=== PATIENT | female | born 1945 | race Caucasian/White ===

== ENCOUNTER 2021-05-31 08:58 | Day surgery (SDC) | payer BC, MEDICARE ==
[2021-05-27 08:52] VITALS: BMI 29.2
[~2021-05-31 08:58] MED LIST: LACTATED RINGERS 1,000 ML IV SCH
[2021-05-31 09:39] VITALS: TEMP 97.1
[2021-05-31] MEDS ORDERED: LIDOCAINE 1% (10MG/ML) FOR IV START INTRADERMA ONE (09:48)
[2021-05-31] MEDS ORDERED: LIDOCAINE 1% INJ 10MG/ML (20 ML MDV) ONE (10:35)
[2021-05-31] MEDS ORDERED: PROPOFOL 10 MG/ML 20 ML VIAL IV ONE (10:35)
--- NOTE | 2021-05-31 10:53 | P.PCN ---
Date of Procedure: 05/31/21 Procedure(s) Performed: BRIEF HISTORY: Patient is a 75-year-old pleasant white female scheduled for an elective colonoscopy as a part of screening for colorectal neoplasia. PROCEDURE PERFORMED: Colonoscopy with snare polypectomy. PREOPERATIVE DIAGNOSIS: Screening for colon cancer. IV sedation per Anesthesia. PROCEDURE: After informed consent was obtained, the patient, was brought into the endoscopy unit. IV sedation was administered by Anesthesia under continuous monitoring. Digital rectal examination was normal. Initially the Olympus CF-160 flexible video colonoscope was then inserted in the rectum, gradually advanced into the cecum without any difficulty. Careful examination was performed as the scope was gradually being withdrawn. Ileocecal valve and the appendiceal orifice were visualized and appeared normal. Prep was excellent. Mucosa of the cecum, ascending colon, transverse colon, descending colon, In the sigmoid: There was a 5 limited polyp that was removed by snare polypectomy. Rest of the sigmoid colon, and rectum appeared normal. Scattered sigmoid diverticulosis. Retroflexion was performed in the rectum and no lesions were seen. The patient tolerated the procedure well. IMPRESSION: 5 mm sigmoid: Polyp status post polypectomy Scattered sigmoid diverticulosis. RECOMMENDATIONS: Findings of this examination were discussed with the patient as well as a family. She was advised to follow with the biopsy results. If the biopsy reveals adenoma she can have a repeat colonoscopy in 5 years..
[2021-05-31 11:25] VITALS: BP 161/81; PULSE 88; RESP 18
== END 2021-05-31 11:32 | disposition home or self-care (01) ==
LOC: ORWHC2ENDO 08:58
PROVIDERS: ATTEND Internal Medicine Gastroenterology
DX: Z12.11 Encounter for screening for malignant neoplasm of colon (principal); K63.5 Polyp of colon; K57.30 Diverticulosis of large intestine without perforation or abscess without bleeding
CPT/HCPCS: 45385; 88305; J2001; J2704

== ENCOUNTER 2022-11-27 15:14 | Inpatient (IN) | payer MEDICARE ==
--- NOTE | 2022-11-27 15:25 | ED ---
General Adult HPI - General Chief complaint: Neuro Symptoms/Deficit Stated complaint: R leg numbness Time Seen by Provider: 11/27/22 15:20 Source: patient Mode of arrival: ambulatory Limitations: no limitations - History of Present Illness Initial comments: 77-year-old female with past medical history of hypertension, rheumatoid arthritis presents emergency department with right-sided weakness and tingling. Patient went to bed around 10:30 last night. She awoke this morning and when she attempted to get out of bed she had numbness in her right leg. She felt weak and had difficulty ambulating. Daughter is at bedside and states that she fell 3 times today because of the weakness. She also notes that she has numbness and tingling in her right hand. She is right-hand dominant. She denies any speech changes. No headaches or visual changes. No facial droop. No history of stroke. She denies any chest pain or trouble breathing. She does not take any blood thinners. She tested positive for Covid on and has been taking Paxlovid. No other alleviating, precipitating or modifying factors - Related Data Home Medications Medication Instructions Recorded Confirmed Levothyroxine Sodium [Synthroid] 100 mcg PO DAILY 05/27/21 11/27/22 Simvastatin [Zocor] 20 mg PO DIRECTED 05/27/21 11/27/22 Diclofenac Sodium [Voltaren] 75 mg PO BID 11/27/22 11/27/22 Furosemide [Lasix] 20 mg PO DAILY 11/27/22 11/27/22 NIFEdipine XL [Procardia XL] 60 mg PO DAILY 11/27/22 11/27/22 Nirmatrelvir/Ritonavir [Paxlovid 1 dose PO BID 11/27/22 11/27/22 2X150 mg-100 mg (Eua)] Allergies Allergy/AdvReac Type Severity Reaction Status Date / Time cephalexin [From Keflex] Allergy Rash/Hives Verified 11/27/22 16:38 Review of Systems ROS Statement: Those systems with pertinent positive or pertinent negative responses have been documented in the HPI. ROS Other: All systems not noted in ROS Statement are negative. Past Medical History Past Medical History: Deep Vein Thrombosis (DVT), Hypertension, Rheumatoid Arthritis (RA), Thyroid Disorder Additional Past Medical History / Comment(s): hx migrainres, History of Any Multi-Drug Resistant Organisms: None Reported Past Surgical History: Hysterectomy, Tonsillectomy Additional Past Surgical History / Comment(s): vein surgery left leg, dave cataracts Past Anesthesia/Blood Transfusion Reactions: Motion Sickness Past Psychological History: No Psychological Hx Reported Smoking Status: Never smoker Past Alcohol Use History: None Reported Past Drug Use History: None Reported - Past Family History Daughter(s) Family Medical History: Cancer General Exam Limitations: no limitations General appearance: alert, in no apparent distress Head exam: Present: atraumatic, normocephalic, normal inspection Eye exam: Present: normal appearance, PERRL, EOMI. Absent: scleral icterus, conjunctival injection, periorbital swelling ENT exam: Present: normal exam, mucous membranes moist Neck exam: Present: normal inspection. Absent: tenderness, meningismus, lymphadenopathy Respiratory exam: Present: normal lung sounds bilaterally. Absent: respiratory distress, wheezes, rales, rhonchi, stridor Cardiovascular Exam: Present: regular rate, normal rhythm, normal heart sounds. Absent: systolic murmur, diastolic murmur, rubs, gallop, clicks GI/Abdominal exam: Present: soft, normal bowel sounds. Absent: distended, tenderness, guarding, rebound, rigid Extremities exam: Present: normal capillary refill, other (0/5 strength in her rle. 4/5 strength rue. ). Absent: pedal edema, joint swelling, calf tenderness Back exam: Present: normal inspection Neurological exam: Present: alert, oriented X3, CN II-XII intact, abnormal gait Psychiatric exam: Present: normal affect, normal mood Skin exam: Present: warm, dry, intact, normal color. Absent: rash Course Vital Signs 11/27/22 11/27/22 11/27/22 15:16 16:40 16:50 Temperature 98.1 F Pulse Rate 71 70 70 Respiratory 18 18 18 Rate Blood Pressure 123/84 138/84 138/84 O2 Sat by Pulse 97 Oximetry 11/27/22 11/27/22 11/27/22 17:00 17:30 18:00 Temperature Pulse Rate 70 67 70 Respiratory 18 18 18 Rate Blood Pressure 138/84 139/75 152/87 O2 Sat by Pulse Oximetry 11/27/22 11/27/22 11/27/22 18:02 18:30 19:00 Temperature Pulse Rate 65 69 71 Respiratory Rate Blood Pressure 165/86 165/86 O2 Sat by Pulse Oximetry 11/27/22 11/27/22 11/27/22 19:30 20:00 20:30 Temperature Pulse Rate 71 71 69 Respiratory Rate Blood Pressure O2 Sat by Pulse Oximetry 11/27/22 11/27/22 11/27/22 21:00 21:30 22:00 Temperature Pulse Rate 64 73 63 Respiratory Rate Blood Pressure O2 Sat by Pulse Oximetry 11/27/22 11/27/22 11/28/22 22:30 23:30 06:00 Temperature Pulse Rate 66 64 60 Respiratory 18 18 Rate Blood Pressure 155/91 151/84 O2 Sat by Pulse 97 95 Oximetry 11/28/22 11/28/22 11/28/22 08:27 14:45 19:47 Temperature Pulse Rate 64 67 71 Respiratory 18 18 18 Rate Blood Pressure 139/83 130/75 147/90 O2 Sat by Pulse 98 97 99 Oximetry Medical Decision Making - Medical Decision Making Was pt. sent in by a medical professional or institution (, PA, SENIOR DATASTAGE DEVELOPER, urgent care, hospital, or group home...) When possible be specific @ -No Did you speak to anyone other than the patient for history (EMS, parent, family, police, friend...)? What history was obtained from this source @ -No Did you review nursing and triage notes (agree or disagree)? Why? @ -I reviewed and agree with nursing and triage notes Were old charts reviewed (outside hosp., previous admission, EMS record, old EKG, old radiological studies, urgent care reports/EKG's, group home records)? Report findings @ -No old charts were reviewed Differential Diagnosis (chest pain, altered mental status, abdominal pain women, abdominal pain men, vaginal bleeding, weakness, fever, dyspnea, syncope, headache, dizziness, GI bleed, back pain, seizure, CVA, palpatations, mental health, musculoskeletal)? @ -CVA, TIA, lumbar radiculopathy, encephalitis, mass, ms EKG interpreted by me (3pts min.). @ -Yes and demonstrates sinus rhythm with rate of 65. MO interval 176. QRS 100. QTC 386. No acute ST segment elevations or depressions X-rays interpreted by me (1pt min.). @ -yes and demonstrates no acute process CT interpreted by me (1pt min.). @ -yes and demonstrates no acute cva U/S interpreted by me (1pt. min.). @ -None done What testing was considered but not performed or refused? (CT, X-rays, U/S, labs)? Why? @ -None What meds were considered but not given or refused? Why? @ -statin however patient has been on paxlovid. statin contraindicated x 5 days after paxlovid Did you discuss the management of the patient with other professionals (professionals i.e. , PA, SENIOR DATASTAGE DEVELOPER, lab, RT, psych nurse, social media campaign manager, electric clock mechanic, teacher, learning and development officer, family independence case manager)? Give summary @ -Dr. Kline Was smoking cessation discussed for >3mins.? @ -No Was critical care preformed (if so, how long)? @ -No Were there social determinants of health that impacted care today? How? (Homelessness, low income, unemployed, alcoholism, drug addiction, transportation, low edu. Level, literacy, decrease access to med. care, half-way, rehab)? @ -No Was there de-escalation of care discussed even if they declined (Discuss DNR or withdrawal of care, Hospice)? DNR status @ -No What co-morbidities impacted this encounter? (DM, HTN, Smoking, COPD, CAD, Can cer, CVA, ARF, Chemo, Hep., AIDS, mental health diagnosis, sleep apnea, morbid obesity)? @ -None Was patient admitted / discharged? Hospital course, mention meds given and route, prescriptions, significant lab abnormalities, going to OR and other pertinent info. @ -Upon arrival patient was placed into room 24. Thorough history and physical exam was performed. NIH is assessed. Patient does have weakness in her right upper extremity, right lower extremity. NIH is assessed and scores a 6. Last known well was last night at 10:30 PM. I did obtain IV access. We do await lab results as patient is known to have a reduced GFR. Patient is sent over for CT and CT angiography. Patient is not a TPA candidate as she is outside the window for TPA. CT is negative. Patient was given an aspirin. I did hold the patient's statin as she is currently on Paxlovid and there is a significant drug drug interaction. I recommended admission for which the patient was agreeable. Spoke with Dr. Kline for admission. Undiagnosed new problem with uncertain prognosis? @ -yes Drug Therapy requiring intensive monitoring for toxicity (Heparin, Nitro, Insulin, Cardizem)? @ -No Were any procedures done? @ -No Diagnosis/symptom? @ -acute right upper/right lower extremity weakness, suspected cva Acute, or Chronic, or Acute on Chronic? @ -acute Uncomplicated (without systemic symptoms) or Complicated (systemic symptoms)? @ -complicated Side effects of treatment? @ -No Exacerbation, Progression, or Severe Exacerbation? @ -No Poses a threat to life or bodily function? How? (Chest pain, USA, ND, pneumonia, PE, COPD, DKA, ARF, appy, cholecystitis, CVA, Diverticulitis, Homicidal, Suicidal, threat to staff... and all critical care pts) @ -No - Lab Data Result diagrams: 11/27/22 15:44 11/28/22 06:00 Lab Results 11/27/22 11/27/22 11/27/22 Range/Units 15:28 15:44 15:44 WBC 8.5 (3.8-10.6) k/uL RBC 4.34 (3.80-5.40) m/uL Hgb 13.3 (11.4-16.0) gm/dL Hct 40.6 (34.0-46.0) % MCV 93.6 (80.0-100.0) fL MCH 30.7 (25.0-35.0) pg MCHC 32.8 (31.0-37.0) g/dL RDW 15.0 (11.5-15.5) % Plt Count 585 H (150-450) k/uL MPV 8.0 Neutrophils % 79 % Lymphocytes % 13 % Monocytes % 6 % Eosinophils % 0 % Basophils % 0 % Neutrophils # 6.7 (1.3-7.7) k/uL Lymphocytes # 1.1 (1.0-4.8) k/uL Monocytes # 0.5 (0-1.0) k/uL Eosinophils # 0.0 (0-0.7) k/uL Basophils # 0.0 (0-0.2) k/uL PT 10.0 (9.0-12.0) sec INR 0.9 (<1.2) APTT 23.8 (22.0-30.0) sec Sodium (137-145) mmol/L Potassium (3.5-5.1) mmol/L Chloride (98-107) mmol/L Carbon Dioxide (22-30) mmol/L Anion Gap mmol/L BUN (7-17) mg/dL Creatinine (0.52-1.04) mg/dL Est GFR (CKD-EPI)AfAm (>60 ml/min/1.73 sqM) Est GFR (CKD-EPI)NonAf (>60 ml/min/1.73 sqM) Glucose (74-99) mg/dL POC Glucose (mg/dL) 136 H (70-110) mg/dL POC Glu Registered Medical Transcriptionist ID June Calcium (8.4-10.2) mg/dL Total Bilirubin (0.2-1.3) mg/dL AST (14-36) U/L ALT (4-34) U/L Alkaline Phosphatase (38-126) U/L Creatine Kinase (30-135) U/L Troponin I (0.000-0.034) ng/mL Total Protein (6.3-8.2) g/dL Albumin (3.5-5.0) g/dL 11/27/22 11/27/22 Range/Units 15:44 15:44 WBC (3.8-10.6) k/uL RBC (3.80-5.40) m/uL Hgb (11.4-16.0) gm/dL Hct (34.0-46.0) % MCV (80.0-100.0) fL MCH (25.0-35.0) pg MCHC (31.0-37.0) g/dL RDW (11.5-15.5) % Plt Count (150-450) k/uL MPV Neutrophils % % Lymphocytes % % Monocytes % % Eosinophils % % Basophils % % Neutrophils # (1.3-7.7) k/uL Lymphocytes # (1.0-4.8) k/uL Monocytes # (0-1.0) k/uL Eosinophils # (0-0.7) k/uL Basophils # (0-0.2) k/uL PT (9.0-12.0) sec INR (<1.2) APTT (22.0-30.0) sec Sodium 136 L (137-145) mmol/L Potassium 3.8 (3.5-5.1) mmol/L Chloride 100 (98-107) mmol/L Carbon Dioxide 30 (22-30) mmol/L Anion Gap 6 mmol/L BUN 35 H (7-17) mg/dL Creatinine 1.40 H (0.52-1.04) mg/dL Est GFR (CKD-EPI)AfAm 41 (>60 ml/min/1.73 sqM) Est GFR (CKD-EPI)NonAf 36 (>60 ml/min/1.73 sqM) Glucose 136 H (74-99) mg/dL POC Glucose (mg/dL) (70-110) mg/dL POC Glu Registered Medical Transcriptionist ID Calcium 9.5 (8.4-10.2) mg/dL Total Bilirubin 0.5 (0.2-1.3) mg/dL AST 23 (14-36) U/L ALT 24 (4-34) U/L Alkaline Phosphatase 67 (38-126) U/L Creatine Kinase 58 (30-135) U/L Troponin I <0.012 (0.000-0.034) ng/mL Total Protein 7.1 (6.3-8.2) g/dL Albumin 4.3 (3.5-5.0) g/dL Disposition Clinical Impression: Right sided weakness, Cerebrovascular accident (CVA) Disposition: ADMITTED IP TO THIS [facility] Condition: Serious Is patient prescribed a controlled substance at d/c from ED?: No Time of Disposition: 18:06 Decision to Admit Reason: Admit from EC Decision Date: 11/27/22 Decision Time: 18:06
[2022-11-27 15:30] LABS: Glucose,Whole Blood 136 mg/dL (70-110)
[2022-11-27 16:02] LABS: Basophils % (A) 0 %; Eosinophils % (A) 0 %; HCT 40.6 % (34.0-46.0); HGB 13.3 gm/dL (11.4-16.0); Lymphocytes # (A) 1.1 k/uL (1.0-4.8); Lymphocytes % (A) 13 %; MCH 30.7 pg (25.0-35.0); MCHC 32.8 g/dL (31.0-37.0); MCV 93.6 fL (80.0-100.0); Monocytes # (A) 0.5 k/uL (0-1.0); Monocytes % (A) 6 %; Neutrophils # (A) 6.7 k/uL (1.3-7.7); Neutrophils % (A) 79 %; Platelet Count 585 k/uL (150-450); RBC 4.34 m/uL (3.80-5.40); WBC 8.5 k/uL (3.8-10.6)
[2022-11-27 16:10] LABS: INR 0.9 (<1.2); Partial Thromboplastin Time 23.8 sec (22.0-30.0)
[2022-11-27 16:15] LABS: ALT 24 U/L (4-34); AST 23 U/L (14-36); African American GFR (CKD) 41 (>60 ml/min/1.73 sqM); Albumin 4.3 g/dL (3.5-5.0); Alkaline Phosphatase 67 U/L (38-126); Anion Gap 6 mmol/L; Blood Urea Nitrogen 35 mg/dL (7-17); Calcium 9.5 mg/dL (8.4-10.2); Carbon Dioxide 30 mmol/L (22-30); Chloride 100 mmol/L (98-107); Creatine Kinase 58 U/L (30-135); Glucose 136 mg/dL (74-99); Non-African American GFR(CKD) 36 (>60 ml/min/1.73 sqM); Potassium 3.8 mmol/L (3.5-5.1); Sodium 136 mmol/L (137-145); Total Bilirubin 0.5 mg/dL (0.2-1.3); Total Protein 7.1 g/dL (6.3-8.2)
[2022-11-27] MEDS ORDERED: SODIUM CHLORIDE 0.9% 1,000 ML IV STA (16:26)
--- NOTE | 2022-11-27 16:54 | CT ---
EXAMINATION TYPE: CT brain wo con CT DLP: 1104 mGycm, Automated exposure control for dose reduction was used. DATE OF EXAM: 11/27/2022 4:48 PM COMPARISON: CT head neck same day. CLINICAL INDICATION:Female, 77 years old with history of right leg weakness, right leg weakness and n euro deficit TECHNIQUE: Brain: Axial CT images of the brain were obtained with coronal and sagittal reformats created and rev iewed. Contrast used: None. Oral contrast used: None. FINDINGS: Brain: Extra-axial spaces: No abnormal extra-axial fluid collections. Ventricular system: Within normal limits Cerebral parenchyma: No acute intraparenchymal hemorrhage or mass effect. The white-white junction is well differentiated. Cerebellum: Unremarkable. Mass effect: No evidence of midline shift. Intracranial vasculature: Atherosclerotic calcifications of the intracranial vessels. Soft tissues: Normal. Calvarium/osseous structures: No depressed skull fracture. Paranasal sinuses and mastoid air cells: Mild scattered paranasal sinus disease. Visualized orbits: Bilateral aphakia IMPRESSION: No acute intracranial process.
--- NOTE | 2022-11-27 17:07 | XR ---
EXAMINATION TYPE: XR chest 2V DATE OF EXAM: 11/27/2022 5:01 PM CLINICAL INDICATION:Female, 77 years old with history of altered mental status; COMPARISON: None TECHNIQUE: XR chest 2V Frontal and lateral views of the chest. FINDINGS: Lungs/Pleura: There is no evidence of pleural effusion, focal consolidation, or pneumothorax. Pulmonary vascularity: Unremarkable. Heart/mediastinum: Cardiomediastinal silhouette is unremarkable. Musculoskeletal: No acute osseous pathology. IMPRESSION: No acute cardiopulmonary disease/process.
--- NOTE | 2022-11-27 17:13 | CT ---
EXAMINATION TYPE: CT angio head neck CT DLP: 505.1 mGycm, Automated exposure control for dose reduction was used. DATE OF EXAM: 11/27/2022 5:02 PM COMPARISON: CT head same day. CLINICAL INDICATION:Female, 77 years old with history of Neuro deficit, acute, stroke suspected; PHH, right leg weakness and neuro deficit TECHNIQUE: Axially acquired helical CT angiogram of the head and neck was obtained with contrast. Axi al images are supplemented with 3D reconstructions [facility] NASCET criteria used. Contrast used:65ml mL of Isovue 370 with IV Contrast, Oral contrast used: None. FINDINGS: CTA HEAD: No evidence of acute intracranial hemorrhage, mass effect, or midline shift. The ventricles, sulci, a nd cisterns are unremarkable. The visualized portions of the internal carotid arteries, middle cerebral arteries, anterior cerebral arteries, and posterior cerebral arteries are patent. origins of the bilateral posterior cereb ral arteries. The basilar and vertebral arteries are patent. Dominant right vertebral artery. CTA NECK: Right Carotid System: The common carotid and external carotid arteries are patent. There is less than 25% stenosis at the c arotid bifurcation secondary to calcified/noncalcified plaque. The rest of the internal carotid arter y is patent. Left Carotid System: The common carotid and external carotid arteries are patent. There is less than 25% stenosis at the c arotid bifurcation secondary to calcified/noncalcified plaque. The rest of the internal carotid arter y is patent. Vertebral arteries are patent without evidence hemodynamically significant stenosis. Dominant right v ertebral artery. There is a three-vessel aortic arch. The origins of the great vessels are patent. No evidence of hemo dynamically significant stenosis. IMPRESSION: 1. No evidence of dissection of the cervical internal carotid arteries or vertebral arteries or any e vidence of significant stenosis at the carotid bifurcations. 2. No evidence of intracranial high-grade stenosis or intracranial aneurysm.
[2022-11-27] MEDS ORDERED: ASPIRIN 325 MG TAB PO STA (18:07)
[2022-11-27] MEDS ORDERED: SODIUM CHLORIDE 0.9% 1,000 ML IV SCH (18:15)
[2022-11-27] MEDS ORDERED: LACTULOSE 20 GM/30 ML CUP PO PRN (19:13)
[2022-11-27] MEDS ORDERED: ACETAMINOPHEN TAB 325 MG TAB PO PRN (19:13)
[2022-11-27] MEDS ORDERED: ONDANSETRON 4 MG/2 ML VIAL IVP PRN (19:13)
[2022-11-27] MEDS ORDERED: CALCIUM CARBONATE 500 MG CHEWABLE PO PRN (19:13)
[2022-11-27] MEDS ORDERED: ALPRAZolam 0.25 MG TAB PO PRN (19:13)
[2022-11-27] MEDS ORDERED: NALOXONE 0.4 MG/ML 1 ML VIAL IV PRN (19:13)
[2022-11-27] MEDS ORDERED: MELATONIN 3 MG TABLET PO PRN (19:13)
[2022-11-27] MEDS ORDERED: Acetaminophen-Codeine 300-30mg TAB PO PRN (19:19)
[2022-11-27] MEDS: ATORVASTATIN 40 MG TAB PO SCH ×2 (20:12→20:13)
[2022-11-27] MEDS: ENOXAPARIN 40 MG/0.4 ML SYRINGE SQ SCH (20:13)
[2022-11-27] MEDS: SODIUM CHLORIDE 0.45% 1,000 ML IV SCH (20:14)
--- NOTE | 2022-11-27 20:54 | US ---
EXAMINATION TYPE: US carotid duplex BILAT DATE OF EXAM: 11/27/2022 COMPARISON: CTA: Today CLINICAL INDICATION: Female, 77 years old with history of with bubble study-stroke; poss stroke TECHNIQUE: Carotid duplex ultrasound examination. Indirect Doppler criteria was utilized. FINDINGS: EXAM MEASUREMENTS: RIGHT: Peak Systolic Velocity (PSV) cm/sec ----- Right CCA: 65.1 ----- Right ICA: 93.8 ----- Right ECA: 101.6 ICA/CCA ratio: 1.4 RIGHT: End Diastole cm/sec ----- Right CCA: 16.8 ----- Right ICA: 20.7 ----- Right ECA: 20.8 LEFT: Peak Systolic Velocity (PSV) cm/sec ----- Left CCA: 77.9 ----- Left ICA: 69.1 ----- Left ECA: 75.7 ICA/CCA ratio: 0.9 LEFT: End Diastole cm/sec ----- Left CCA: 25.0 ----- Left ICA: 24.1 ----- Left ECA: 15.3 VERTEBRALS (direction of flow): Right Vertebral: Antegrade Left Vertebral: Antegrade Rhythm: Normal WEAPONS DESIGNER NOTES: Mild plaque seen in bilateral bulbs IMPRESSION: Less than 50% stenosis of the bilateral carotid bifurcation. Criteria for Assigning % of Stenosis / Diameter reduction (Estimation based on the indirect measurements of the internal carotid artery velocities (ICA PSV). 1. Normal (no stenosis)=ICA PSV < 125 cm/s: ratio < 2.0: ICA EDV<40 cm/s. 2. Less than 50% stenosis=ICA PSV < 125 cm/s: ratio < 2.0: ICA EDV<40 cm/s. 3. 50 to 69% stenosis=ICA PSV of 125 to 230 cm/s: ration 2.0 ? 4.0: ICA EDV 40-100 cm/s. 4. Greater than 70% stenosis to near occlusion= ICA PSV > 230 cm/s: ratio > 4.0: ICA EDV > 100 cm/s. 5. Near occlusion= ICA PSV velocities may be low or undetectable: variable ratio and ICA EDV. 6. Total occlusion=unable to detect flow.
--- NOTE | 2022-11-27 20:55 | US ---
EXAMINATION TYPE: US kidneys/renal and bladder DATE OF EXAM: 11/27/2022 COMPARISON: NONE CLINICAL INDICATION: Female, 77 years old with history of evaluate for CKD; Eval for CKD EXAM MEASUREMENTS: Right Kidney: 9.9 x 5.2 x 4.6 cm Left Kidney: 9.7 x 4.2 x 5.4 cm Right Kidney: No hydronephrosis or masses seen Left Kidney: Cystic structure seen inf pole measuring 2.4 x 2.1 x 2.0cm Bladder: wnl Bilateral Jets seen: Yes There is no evidence for hydronephrosis at this point in time. No nephrolithiasis is seen. No ping s are identified. The urinary bladder is anechoic. Bilateral ureteral jets are seen. IMPRESSION: 1. Cortical medullary differentiation maintained. 2. No obstructive uropathy. 3. Left renal simple appearing cyst.
--- NOTE | 2022-11-27 21:29 | P.HPIM ---
History of Present Illness H&P Date: 11/27/22 Chief Complaint: Right-sided weakness This is a very pleasant 77-year-old patient of Dr. Shivani Morales. About 4 days ago patient started off with a head cold runny nose sore throat weak tired muscle aching. Did a home test came back positive for COVID. Started on Paxlovid. Patient went to bed last night doing fine. When she got up this morning she felt off balance. She had to hold onto things. This was around 8:30 this morning. By now she was feeling more and more heavy in the right leg. Also felt that she is unable to hold things with the right and could not write. Speech to to change she's had a slight headache for last 4 days. No change in vision. No trouble swallowing. Current decided to come in. Computed tomography scan of the ER was unremarkable. Consult at the bedside. No prior history of stroke. Review of systems: GEN.: Tired EYES: None HEENT: None NECK: None RESPIRATORY: None CARDIOVASCULAR: None GASTROINTESTINAL: None GENITOURINARY: None MUSCULOSKELETAL: None LYMPHATICS: None HEMATOLOGICAL: None PSYCHIATRY: None NEUROLOGICAL: As above Past medical history to include: Hypertension, rheumatoid arthritis, hypothyroid, migraine Social history: . No smoking. Alcohol occasionally. Used to work in the bank Physical examination: VITAL SIGNS: 98.1, 71, 18, 123/84, 97% room air GENERAL: BMI 29.6, sitting up in bed awake comfortable. EYES: Pupils equal. Conjunctiva normal. HEENT: External appearance of nose and ears normal, oral cavity grossly normal. NECK: JVD not raised; masses not palpable. HEART: First and second heart sounds are normal; no edema. LUNGS: Respiratory rate normal; clear to auscultation. ABDOMEN: Soft, nontender, liver spleen not palpable, no masses palpable. PSYCH: Alert and oriented x3; mood and affect normal. MUSCULOSKELETAL:No Clubbing/cyanosis;muscles-grossly intact. OA NEUROLOGICAL: [Cranial nerves grossly intact; no facial asymmetry, decreased body in the right arm 4/5. Poor in the right leg 2/5. Patient is able to swallow food. LYMPHATICS: No lymph nodes palpable in the axilla and neck INVESTIGATIONS, reviewed in the clinical context: White count 8.5 hemoglobin 13.3 platelets 585 sodium 136 potassium 3.8 BUN 35 creatinine 1.40 EKG tracing personally reviewed by me-poor R-wave progression in anterior leads. Nonspecific T ST segment changes. Chest x-ray film personally reviewed by me-unremarkable Carotid Doppler: Less than 50% stenosis bilateral carotid bifurcation. Renal ultrasound: Corticomedullary differentiation maintained. Left renal simple cyst. CT angiogram to neck:: Negative Assessment and plan: -Acute stroke. Likely ischemic. Initial computed tomography scan was negative. MRI of the brain with and without contrast ordered. Carotid Doppler unremarkable. 2-D echo with bubble study ordered. Aspirin. Lipitor. Neuro checks Neurology consulted. -Abnormal kidney function. Patient is on Lasix and Voltaren Renal ultrasound shows preserved corticomedullary different sensation. Check UA. Hold Lasix and Voltaren. IV fluids. Repeat labs in the morning. -Hypothyroid Synthroid 100 g a day -Hyperlipidemia Lipitor 40 mg daily at bedtime -Primary osteoarthritis especially of the shoulder. Voltaren gel. -Essential hypertension We'll start Lopressor 25 mg twice a day Care was discussed with the patient has been out of the bedside. Questions answered. IV fluids. Repeat labs. Past Medical History Past Medical History: Deep Vein Thrombosis (DVT), Hypertension, Rheumatoid Arthritis (RA), Thyroid Disorder Additional Past Medical History / Comment(s): hx migrainres, History of Any Multi-Drug Resistant Organisms: None Reported Past Surgical History: Hysterectomy, Tonsillectomy Additional Past Surgical History / Comment(s): vein surgery left leg, dave cataracts Past Anesthesia/Blood Transfusion Reactions: Motion Sickness Past Psychological History: No Psychological Hx Reported Smoking Status: Never smoker Past Alcohol Use History: None Reported Past Drug Use History: None Reported - Past Family History Daughter(s) Family Medical History: Cancer Medications and Allergies Home Medications Medication Instructions Recorded Confirmed Type Levothyroxine Sodium [Synthroid] 100 mcg PO DAILY 05/27/21 11/27/22 History Simvastatin [Zocor] 20 mg PO DIRECTED 05/27/21 11/27/22 History Diclofenac Sodium [Voltaren] 75 mg PO BID 11/27/22 11/27/22 History Furosemide [Lasix] 20 mg PO DAILY 11/27/22 11/27/22 History NIFEdipine XL [Procardia XL] 60 mg PO DAILY 11/27/22 11/27/22 History Nirmatrelvir/Ritonavir [Paxlovid 1 dose PO BID 11/27/22 11/27/22 History 2X150 mg-100 mg (Eua)] Allergies Allergy/AdvReac Type Severity Reaction Status Date / Time cephalexin [From Keflex] Allergy Rash/Hives Verified 11/27/22 16:38 Physical Exam Vitals: Vital Signs Temp Pulse Resp BP Pulse Ox 11/27/22 18:00 70 18 152/87 11/27/22 17:30 67 18 139/75 11/27/22 17:00 70 18 138/84 11/27/22 16:50 70 18 138/84 11/27/22 16:40 70 18 138/84 11/27/22 15:16 98.1 F 71 18 123/84 97 Intake and Output 11/27/22 11/27/22 11/27/22 06:59 14:59 22:59 Other: Weight 80.739 kg Results CBC & Chem 7: 11/27/22 15:44 11/27/22 15:44 Labs: Abnormal Lab Results - Last 24 Hours (Table) 11/27/22 11/27/22 11/27/22 Range/Units 15:28 15:44 15:44 Plt Count 585 H (150-450) k/uL Sodium 136 L (137-145) mmol/L BUN 35 H (7-17) mg/dL Creatinine 1.40 H (0.52-1.04) mg/dL Glucose 136 H (74-99) mg/dL POC Glucose (mg/dL) 136 H (70-110) mg/dL
[2022-11-27 23:52] LABS: Appearance,Urine Clear (Clear); Bilirubin,Urine Negative (Negative); Blood,Urine Negative (Negative); Color,Urine Colorless; Glucose,Urine (UA) 2+ (Negative); Ketones,Urine Negative (Negative); Leukocyte Esterase,Urine Negative (Negative); Nitrite,Urine Negative (Negative); Protein,Urine Trace (Negative); Specific Gravity,Urine 1.038 (1.001-1.035); Urobilinogen,Urine <2.0 mg/dL (<2.0)
[2022-11-28 06:30] LABS: African American GFR (CKD) 63 (>60 ml/min/1.73 sqM); Anion Gap 1 mmol/L; Blood Urea Nitrogen 30 mg/dL (7-17); Calcium 8.5 mg/dL (8.4-10.2); Carbon Dioxide 29 mmol/L (22-30); Chloride 106 mmol/L (98-107); Glucose 105 mg/dL (74-99); Non-African American GFR(CKD) 55 (>60 ml/min/1.73 sqM); Potassium 3.9 mmol/L (3.5-5.1); Sodium 136 mmol/L (137-145)
[2022-11-28] MEDS ORDERED: ASPIRIN 325 MG TAB PO SCH (09:00)
[2022-11-28] MEDS: SODIUM CHLORIDE 0.45% 1,000 ML IV SCH (09:07)
[2022-11-28] MEDS: ASPIRIN 81 MG PO SCH (09:08)
[2022-11-28] MEDS: ENOXAPARIN 40 MG/0.4 ML SYRINGE SQ SCH (09:08)
[2022-11-28] MEDS: DICLOFENAC SODIUM GEL 100 GM TUBE TOPICAL SCH ×2 (09:18→20:38)
--- NOTE | 2022-11-28 11:45 | MR ---
EXAMINATION TYPE: MR brain wo/w con DATE OF EXAM: 11/28/2022 COMPARISON: 11/28/2019 CT brain HISTORY: Acute right sided weakness/numbness. TECHNIQUE: Multiplanar, multisequence images of the brain and brainstem is performed without and with IV contras t, utilizing 8 mL intravenous Gadavist . FINDINGS: Diffusion weighted images demonstrate no evidence of a recent infarct or other diffusion ab normality. Mild generalized degenerative change. There is diffuse focal areas of abnormal white matter ischemic white matter change. Midline structures demonstrate normal morphology. The craniocervical junction appears within normal limits. Post contrast images demonstrate no abnormal enhancement. The dural venous sinuses appear pa tent. Mild changes sinusitis, sinus and the orbits are symmetric. IMPRESSION: 1. Mild degenerative and remote ischemic white matter changes. 2. Changes of chronic sinusitis and right mastoiditis.
--- NOTE | 2022-11-28 12:38 | CA ---
Transthoracic Echo Report Name: Lorraine Mccurdy Age: 77 Gender: F : 1945 Exam Date: 11/28/2022 09:46 Exam Location: [place] [facility] Ht (in): 65 Wt (lb): 178 Ordering Physician: Willian Kline MD Attending/Referring Phys: Hide Spreader Shannan Gongora RDCS Procedure CPT: Indications: with bubble study-stroke Cardiac Hx: HTN Technical Quality: Good Contrast 1: Total Dose (mL): Contrast 2: Total Dose (mL): MEASUREMENTS (Male / Female) Normal Values 2D ECHO LV Diastolic Diameter PLAX 4.5 cm 4.2 - 5.9 / 3.9 - 5.3 cm LV Systolic Diameter PLAX 2.8 cm IVS Diastolic Thickness 1.1 cm 0.6 - 1.0 / 0.6 - 0.9 cm LVPW Diastolic Thickness 1.1 cm 0.6 - 1.0 / 0.6 - 0.9 cm LV Relative Wall Thickness 0.5 RV Internal Dim ED PLAX 2.9 cm LA Systolic Diameter LX 3.7 cm 3.0 - 4.0 / 2.7 - 3.8 cm LV Diastolic Volume MOD 4C 101.9 cm??? LV Systolic Volume MOD 4C 47.5 cm??? LV Ejection Fraction MOD 4C 53.4 % LV Cardiac Index MOD 4C 1620.0 cm???/min???m??? LV Diastolic Length 4C 6.9 cm LV Systolic Length 4C 5.7 cm LV Diastolic Volume MOD 2C 43.8 cm??? LV Systolic Volume MOD 2C 14.8 cm??? LV Ejection Fraction MOD 2C 66.1 % LV Cardiac Index MOD 2C 861.9 cm???/min???m??? LV Diastolic Length 2C 6.2 cm LV Systolic Length 2C 5.0 cm LA Volume 43.3 cm??? 18 - 58 / 22 - 52 cm??? M-MODE IVS Diastolic Thickness MM 2.9 cm 0.6 - 1.0 / 0.6 - 0.9 cm Aortic Root Diameter MM 3.5 cm MV E Point Septal Separation 0.2 cm AV Cusp Separation MM 1.9 cm DOPPLER AV Peak Velocity 151.3 cm/s AV Peak Gradient 9.2 mmHg MV Area PHT 4.0 cm??? Mitral E Point Velocity 69.1 cm/s Mitral A Point Velocity 92.3 cm/s Mitral E to A Ratio 0.7 MV Deceleration Time 189.4 ms MV E' Velocity 3.7 cm/s Mitral E to MV E' Ratio 18.6 TR Peak Velocity 219.3 cm/s TR Peak Gradient 19.2 mmHg Right Ventricular Systolic Press 23.4 mmHg FINDINGS Left Ventricle Left ventricular ejection fraction is estimated at 55-60 %. Left ventricular cavity size normal. Mildly increased septal wall thickness. Mildly increased posterior wall thickness. Right Ventricle Normal right ventricular size and function. Right ventricular systolic pressure within normal limits. Right Atrium Normal right atrial size. Left Atrium Normal left atrial size. Mitral Valve Structurally normal mitral valve. No mitral stenosis, regurgitation or prolapse. Aortic Valve Trileaflet aortic valve. No aortic valve stenosis or regurgitation. Tricuspid Valve Structurally normal tricuspid valve. Mild tricuspid regurgitation. Pulmonic Valve Pulmonic valve not well visualized. Pericardium No pericardial effusion. Aorta Normal size aortic root and proximal ascending aorta. CONCLUSIONS Technically suboptimal and difficult study. Left ventricle systolic function is normal. Mild mitral and tricuspid regurgitation. Bubble study is negative for any shunt. No pericardial effusion Previewed by: Dr. Garret Abarca MD (Electronically Signed) Final Date: 28 November 2022 12:38
--- NOTE | 2022-11-28 13:06 | P.PN ---
Progress Note - Text Progress Note Date: 11/28/22 Chief Complaint: Right-sided weakness This is a very pleasant 77-year-old patient of Dr. Shivani Morales. About 4 days ago patient started off with a head cold runny nose sore throat weak tired muscle aching. Did a home test came back positive for COVID. Started on Paxlovid. Patient went to bed last night doing fine. When she got up this morning she felt off balance. She had to hold onto things. This was around 8:30 this morning. By now she was feeling more and more heavy in the right leg. Also felt that she is unable to hold things with the right and could not write. Speech to to change she's had a slight headache for last 4 days. No change in vision. No trouble swallowing. Current decided to come in. Computed tomography scan of the ER was unremarkable. Consult at the bedside. No prior history of stroke. November 28: Patient presented with a clinical diagnosis stroke. Right-sided weakness remains. Discussed with the patient and son the results currently available. Patient's creatinine has normalized. Stop IV fluids. Has lower extremity edema. 1 dose of IV Lasix. Active Medications Acetaminophen (Acetaminophen Tab 325 Mg Tab) 650 mg PO Q6HR PRN PRN Reason: Mild Pain or Fever > 100.5 Acetaminophen/Codeine Phosphate (Acetaminophen-Codeine 300-30mg Tab) 1 each PO Q6HR PRN PRN Reason: Pain Alprazolam (Alprazolam 0.25 Mg Tab) 0.25 mg PO Q6HR PRN PRN Reason: Anxiety Aspirin (Aspirin 81 Mg) 81 mg PO DAILY [facility] Last Admin: 11/28/22 09:08 Dose: 81 mg Atorvastatin Calcium (Atorvastatin 40 Mg Tab) 40 mg PO HS [facility] Last Admin: 11/27/22 20:13 Dose: Not Given Calcium Carbonate/Glycine (Calcium Carbonate 500 Mg Chewable) 1,000 mg PO Q4HR PRN PRN Reason: Dyspepsia Clopidogrel Bisulfate (Clopidogrel 75 Mg Tab) 75 mg PO DAILY [facility] Diclofenac Sodium (Diclofenac Sodium Gel 100 Gm Tube) 2 gm TOPICAL BID [facility]; Protocol Last Admin: 11/28/22 09:18 Dose: 2 gm Enoxaparin Sodium (Enoxaparin 40 Mg/0.4 Ml Syringe) 40 mg SQ DAILY [facility] Last Admin: 11/28/22 09:08 Dose: 40 mg Furosemide (Furosemide 10 Mg/Ml 2 Ml Vial) 20 mg IV DAILY [facility] Lactulose (Lactulose 20 Gm/30 Ml Cup) 20 gm PO DAILY PRN PRN Reason: Constipation Melatonin (Melatonin 3 Mg Tablet) 3 mg PO HS PRN PRN Reason: Insomnia Naloxone HCl (Naloxone 0.4 Mg/Ml 1 Ml Vial) 0.2 mg IV Q2M PRN PRN Reason: Opioid Reversal Ondansetron HCl (Ondansetron 4 Mg/2 Ml Vial) 4 mg IVP Q8HR PRN PRN Reason: Nausea And Vomiting Past medical history to include: Hypertension, rheumatoid arthritis, hypothyroid, migraine Social history: . No smoking. Alcohol occasionally. Used to work in the bank Physical examination: VITAL SIGNS: 98.1, 64, 18, 139/83, 98% room air GENERAL: BMI 29.6, sitting up in bed awake comfortable. EYES: Pupils equal. Conjunctiva normal. HEENT: External appearance of nose and ears normal, oral cavity grossly normal. NECK: JVD not raised; masses not palpable. HEART: First and second heart sounds are normal; some edema present LUNGS: Respiratory rate normal; clear to auscultation. ABDOMEN: Soft, nontender, liver spleen not palpable, no masses palpable. PSYCH: Alert and oriented x3; mood and affect normal. MUSCULOSKELETAL:No Clubbing/cyanosis;muscles-grossly intact. OA NEUROLOGICAL: [Cranial nerves grossly intact; no facial asymmetry, decreased body in the right arm 4/5. Power right leg 2/5. Patient is able to swallow food. INVESTIGATIONS, reviewed in the clinical context: 2-D echocardiogram: EF 55-60%. Negative bubble study. MRI brain with and without contrast: Chronic changes. November 28: Potassium 3.9 creatinine 0.98 White count 8.5 hemoglobin 13.3 platelets 585 sodium 136 potassium 3.8 BUN 35 creatinine 1.40 EKG tracing personally reviewed by me-poor R-wave progression in anterior leads. Nonspecific T ST segment changes. Chest x-ray film personally reviewed by me-unremarkable Carotid Doppler: Less than 50% stenosis bilateral carotid bifurcation. Renal ultrasound: Corticomedullary differentiation maintained. Left renal simple cyst. CT angiogram to neck:: Negative Assessment and plan: -Acute stroke. Likely ischemic. On clinical grounds. Possible lacunar infarct Initial computed tomography scan was negative. MRI of the brain -chronic changes Carotid Doppler unremarkable. 2-D echo with bubble study -negative Aspirin. Plavix Lipitor. Pending input from neurology -Acute kidney injury likely prerenal from diuretic.: Corrected Renal ultrasound shows preserved corticomedullary different sensation. Check UA. Lasix discontinued -Gait dysfunction due to acute stroke PT OT. Evaluated for rehab. -Hypothyroid Synthroid 100 g a day -Chronic bilateral lower extremity venous insufficiency VON stockings -Hyperlipidemia Lipitor 40 mg daily at bedtime -Primary osteoarthritis especially of the shoulder. Voltaren gel. -Essential hypertension Lopressor 25 mg twice a day Add chlorthalidone -Acute fluid overload from IV fluids. Stop saline. IV Lasix 20 mg 1. Discussed with patient and the son. Await input from neurology. Past Medical History Past Medical History: Deep Vein Thrombosis (DVT), Hypertension, Rheumatoid Arthritis (RA), Thyroid Disorder Additional Past Medical History / Comment(s): hx migrainres, History of Any Multi-Drug Resistant Organisms: None Reported Past Surgical History: Hysterectomy, Tonsillectomy Additional Past Surgical History / Comment(s): vein surgery left leg, dave cataracts Past Anesthesia/Blood Transfusion Reactions: Motion Sickness Past Psychological History: No Psychological Hx Reported Smoking Status: Never smoker Past Alcohol Use History: None Reported Past Drug Use History: None Reported - Past Family History Daughter(s) Family Medical History: Cancer
--- NOTE | 2022-11-28 13:58 | P.CNNES ---
History of Present Illness Consult date: 11/28/22 Requesting physician: Sugar Ruiz Reason for Consult: right sided weakness/numbness suspect cva History of Present Illness: This is a 77-year-old woman who presented emergency department because of right- sided weakness with numbness. Patient is accompanied with her son was at bedside. Patient stated that the she woke up today around 8 AM and the last normal was about 7:30 PM last night and she noticed when she woke up her right leg was crampy and was having difficulty walking. She felt was getting worse and a result fell on the ground then she noticed that her right upper extremity was weak and had difficulty writing on over the right and. She stated that she had numbness on the right side. She denies any facial droop, difficulty getting words out, difficulty swallowing, visual disturbance. She denies of any neck pain or lower back pain. Denies any trauma. Denies any history of stroke. Denies any seizures in the past. Denies being on any antiplatelet. Per the ED attending's note patient NIH stroke scale was a 6. No IV TPA since she is outside the window and the risks outweigh the benefits. Patient continues to have right-sided weakness even with MRI of the brain being negative. Some of the workup during his hospital visit consisted of: Initial serum glucose is 136. The appearance 35 and creatinine is 1.40 which creatinine has improved. CT of the head is reported as no acute intercranial process. CT angiography of the head and neck is reported as no evidence of dissection cervical internal carotid artery or vertebral artery or any evidence of significant stenosis at the carotid bifurcation. No evidence of intracranial high-grade stenosis or intracranial aneurysm. Carotid duplex is reported as less than 50% stenosis of bilateral carotid bifurcation. 2-D echo was reported as technically suboptimal and difficult study. The ventricle systolic function is normal. Mild mitral and tricuspid regurgitation. Bubble study is negative for any shunt. No pericardial effusion. MRI brain is reported as mild degenerative and remote ischemic white matter changes. Changes of chronic sinusitis and right mastoiditis. I personally reviewed the MRI and agree there is no acute or subacute ischemic stroke. Review of Systems 10 point system was reviewed and positive and negative as per HPI Past Medical History Past Medical History: Deep Vein Thrombosis (DVT), Hypertension, Rheumatoid Arthritis (RA), Thyroid Disorder Additional Past Medical History / Comment(s): hx migrainres, History of Any Multi-Drug Resistant Organisms: None Reported Past Surgical History: Hysterectomy, Tonsillectomy Additional Past Surgical History / Comment(s): vein surgery left leg, dave cataracts Past Anesthesia/Blood Transfusion Reactions: Motion Sickness Past Psychological History: No Psychological Hx Reported Smoking Status: Never smoker Past Alcohol Use History: None Reported Past Drug Use History: None Reported - Past Family History Daughter(s) Family Medical History: Cancer Medications and Allergies Home Medications Medication Instructions Recorded Confirmed Type Levothyroxine Sodium [Synthroid] 100 mcg PO DAILY 05/27/21 11/27/22 History Simvastatin [Zocor] 20 mg PO DIRECTED 05/27/21 11/27/22 History Diclofenac Sodium [Voltaren] 75 mg PO BID 11/27/22 11/27/22 History Furosemide [Lasix] 20 mg PO DAILY 11/27/22 11/27/22 History NIFEdipine XL [Procardia XL] 60 mg PO DAILY 11/27/22 11/27/22 History Nirmatrelvir/Ritonavir [Paxlovid 1 dose PO BID 11/27/22 11/27/22 History 2X150 mg-100 mg (Eua)] Allergies Allergy/AdvReac Type Severity Reaction Status Date / Time cephalexin [From Keflex] Allergy Rash/Hives Verified 11/27/22 16:38 Physical Examination - Vital Signs Vital Signs: Vital Signs Temp Pulse Resp BP Pulse Ox 11/28/22 08:27 64 18 139/83 98 11/28/22 06:00 60 18 151/84 95 11/27/22 23:30 64 18 155/91 97 11/27/22 22:30 66 11/27/22 22:00 63 11/27/22 21:30 73 11/27/22 21:00 64 11/27/22 20:30 69 11/27/22 20:00 71 11/27/22 19:30 71 11/27/22 19:00 71 11/27/22 18:30 69 165/86 11/27/22 18:02 65 165/86 11/27/22 18:00 70 18 152/87 11/27/22 17:30 67 18 139/75 11/27/22 17:00 70 18 138/84 11/27/22 16:50 70 18 138/84 11/27/22 16:40 70 18 138/84 11/27/22 15:16 98.1 F 71 18 123/84 97 Intake and Output 11/27/22 11/28/22 11/28/22 22:59 06:59 14:59 Other: Weight 80.739 kg GENERAL: The patient is sitting in a recliner chair and is not in acute distress. NEUROLOGICAL: Higher mental function: The patient is awake, alert, oriented to self, place and time. Patient is following commands. No aphasia and no neglect. Cranial nerves: The pupils are round, equal and reactive to light and accommodation. Visual herron are full to confrontation throughout. Extraocular movement is intact no nystagmus is noted. Facial sensation is normal to touch throughout. The facial strength is normal throughout. Hearing is mildly decreased bilaterally to hand rub. Tongue is midline and moved [id number] without any difficulty. No dysarthria is noted. Shoulder shrug is normal bilaterally. Motor: The strength is right lower extremity: right ankle dorsiflexion is 3-4 while plantarflexion is 4-4+. Otherwise rest of right lower extremity is 4+. R est of extremity strength are5 over 5 throughout. Slightly decrease tone over the right lower extremity. Otherwise, normal tone and bulk. Cerebellum: Normal finger to nose bilaterally. Sensation: Sensation is normal to touch throughout. Reflexes (right/left): Right patellar is 1+, bilateral ankles are 0-1. Otherwise 2+ throughout. Plantars are mute bilaterally. Results - Laboratory Findings CBC and BMP: 11/27/22 15:44 11/28/22 06:00 Abnormal Lab Findings: Abnormal Labs 11/27/22 11/27/22 11/27/22 15:28 15:44 15:44 Plt Count 585 H Sodium 136 L BUN 35 H Creatinine 1.40 H Glucose 136 H POC Glucose (mg/dL) 136 H Ur Specific [place] Urine Protein Urine Glucose (UA) 11/27/22 11/28/22 23:20 06:00 Plt Count Sodium 136 L BUN 30 H Creatinine Glucose 105 H POC Glucose (mg/dL) Ur Specific [place] 1.038 H Urine Protein Trace H Urine Glucose (UA) 2+ H Assessment and Plan Assessment: This is a 77-year-old woman who presents emergency department because of weakness and numbness that started initially in the right lower and then noticed of the right upper extremity. She continues to have right lower extremity weakness. Denies of any neck pain or lower back pain. Her MRI of the brain is negative for any acute stroke. Acute right sided weakness with numbness, started in the right lower extremity (right upper extremity resolved): Rule out severe cervical stenosis or lumbar since her right upper extremity has improved. MRI Brain is negative for stroke Acute kidney injury Plan: I ordered MRI of the cervical and lumbar spine CK level is normal I ordered TSH level, vitamin B12 level. She was started on aspirin 81 mg, Plavix 75mg and Lipitor 40 mg by the primary team. From a neurologic perspective I'll defer the use of antiplatelet to the primary team patient does not have any acute stroke. Continue neuro checks PT OT is consulted We'll defer the rest of the medical management to primary team The plan was discussed with the patient and her son was at bedside Thank you for the consultation Time with Patient: Greater than 30
[2022-11-28] MEDS: FUROSEMIDE 10 MG/ML 2 ML VIAL IV SCH (14:52)
[2022-11-28] MEDS: CLOPIDOGREL 75 MG TAB PO SCH (16:07)
[2022-11-28 16:44] LABS: Chol/HDL Ratio 5.47 Ratio; LDL Cholesterol,Calculated 129.8 mg/dL (0.0-131.0)
[2022-11-28] MEDS: ATORVASTATIN 40 MG TAB PO SCH (20:39)
[2022-11-29] MEDS: DICLOFENAC SODIUM GEL 100 GM TUBE TOPICAL SCH ×2 (09:05→19:34)
[2022-11-29] MEDS: ENOXAPARIN 40 MG/0.4 ML SYRINGE SQ SCH (09:06)
[2022-11-29] MEDS: CHLORTHALIDONE 25 MG TAB PO SCH (09:06)
[2022-11-29] MEDS: FUROSEMIDE 10 MG/ML 2 ML VIAL IV SCH (09:06)
[2022-11-29] MEDS: ASPIRIN 81 MG PO SCH (09:06)
[2022-11-29] MEDS: CLOPIDOGREL 75 MG TAB PO SCH (09:11)
--- NOTE | 2022-11-29 10:16 | P.CNOR ---
History of Present Illness - [facility] Consult date: 11/29/22 History of present illness: Patient is a 77-year-old female who presented to the emergency department on 11/27/2022 due to right-sided weakness and numbness. Orthopedics was consulted due to right lower extremity weakness. Patient was seen at bedside this morning lying semirecumbent position. Patient says she awoke in bed Sunday morning and noticed right upper extremity and right lower extremity weakness and right lower extremity numbness. Patient states the right lower extremity numbness was from the middle of her thigh all the way down to her foot. Patient says normally she ambulates independently without the use of a cane or walker. She says on Sunday she was unable to walk because she was not able to move/control her right lower extremity. Patient states that mostly felt completely numb. Patient denies any previous history of stroke or heart attack. Patient denies any fevers/chills/headaches or visual changes. CT of the head was negative for any acute. MRI of the brain did not show any acute or subacute stroke. Patient states she has not had any orthopedic surgeries in the past. Patient says she has had steroid injection into her left knee. The right lower extremity weakness/numbness in right lower extremity issues are completely new at this time. Patient says over the past couple days since she's been in the hospital the numbness has somewhat focalized and it goes from her right knee to the right foot still. Patient says she is able to walk a little bit using walker however, she does use a slow shuffling steps with the right leg at this time. Patient denies any other issues. Patient denies chest pain, fever, shortness of breath, nausea, vomiting, change in vision, loss of bowel/bladder control. Past Medical History Past Medical History: Deep Vein Thrombosis (DVT), Hypertension, Rheumatoid Arthritis (RA), Thyroid Disorder Additional Past Medical History / Comment(s): hx migrainres, History of Any Multi-Drug Resistant Organisms: None Reported Past Surgical History: Hysterectomy, Tonsillectomy Additional Past Surgical History / Comment(s): vein surgery left leg, dave cataracts Past Anesthesia/Blood Transfusion Reactions: Motion Sickness Past Psychological History: No Psychological Hx Reported Smoking Status: Never smoker Past Alcohol Use History: None Reported Past Drug Use History: None Reported - Past Family History Daughter(s) Family Medical History: Cancer Medications and Allergies Home Medications Medication Instructions Recorded Confirmed Type Levothyroxine Sodium [Synthroid] 100 mcg PO DAILY 05/27/21 11/27/22 History Simvastatin [Zocor] 20 mg PO DIRECTED 05/27/21 11/27/22 History Diclofenac Sodium [Voltaren] 75 mg PO BID 11/27/22 11/27/22 History Furosemide [Lasix] 20 mg PO DAILY 11/27/22 11/27/22 History NIFEdipine XL [Procardia XL] 60 mg PO DAILY 11/27/22 11/27/22 History Nirmatrelvir/Ritonavir [Paxlovid 1 dose PO BID 11/27/22 11/27/22 History 2X150 mg-100 mg (Eua)] Allergies Allergy/AdvReac Type Severity Reaction Status Date / Time cephalexin [From Keflex] Allergy Rash/Hives Verified 11/27/22 16:38 Physical Examination Inspection: Negative for any open fractures, significant erythema/ecchymosis/ open wounds. Sensation: Patient does have sensation throughout bilateral upper and lower extremities. However, sensation is altered from the right knee down to the right foot in the area where patient has numbness. Sensation is somewhat dull from right knee to right foot. Palpation: Nontender to palpation throughout exam Range of motion: Patient does have limited range of motion in right ankle dorsiflexion and in EHL/FHL on the right. Full range of motion. Left lower extremity and exam. Full range of motion throughout rest of right lower extremity exam. Patient does have full range of motion throughout bilateral upper extremities on exam. Motor: 4+/5 in all major motor groups in bilateral upper extremities. 4-/5 in resisted right ankle dorsi/plantar flexion and EHL/FHL. 4/5 throughout other major motor groups in right lower extremity. 4+/5 in all major motor groups left lower extremity. Neurovascular: DP pulses 2+ bilaterally. Cap refill under 3 seconds in digits of upper extremities Special tests: Negative Homans bilaterally. Negative clonus bilaterally. Negative Tila bilaterally Results - Labs Labs: Abnormal Lab Results - Last 24 Hours (Table) 11/28/22 Range/Units 06:00 Triglycerides 164.00 H (0.00-149.00) mg/dL HDL Cholesterol 36.40 L (40.00-60.00) mg/dL H & H 11/27/22 Range/Units 15:44 Hgb 13.3 (11.4-16.0) gm/dL Hct 40.6 (34.0-46.0) % Coagulation 11/27/22 Range/Units 15:44 INR 0.9 (<1.2) Result Diagrams: 11/27/22 15:44 11/28/22 06:00 Assessment and Plan Assessment: 1. Right lower extremity weakness, numbness; gait disturbance Plan: 1. Right lower extremity weakness, numbness; gait disturbance - patient stable at bedside this morning. Patient does present with some minor weakness in the right lower extremity exam. Patient has good strength throughout the rest of ex am Negative for any tensioning signs. Neurology has ordered MRI of the cervical and lumbar spine for further evaluation. At this time we are not recommending any emergent/urgent orthopedic surgical intervention. We are recommending PT/OT daily. I did discuss with the patient to perform range of motion exercises of the right lower extremity was lying in bed. We will continue to follow patient during her stay in hospital. Pending MRI results from cervical/lumbar spine. 2. Appreciate medical management 3. Pain management - Tylenol with Codeine 4. DVT prophylaxis - aspirin; Plavix 5. GI prophylaxis - lactulose; Tums 6. PT/OT - weightbearing as tolerated with walker 7. Appreciate consult Time with Patient: Less than 30
--- NOTE | 2022-11-29 15:58 | P.PN ---
Subjective Progress Note Date: 11/29/22 I am following-up with patient and she feels about the same. Continues to have weakness over the right lower extremity. She stated she her numbness in lower extremity is improving but not resolved. Objective - Vital Signs Vital signs: Vital Signs Temp 98.0 F 11/29/22 08:50 Pulse 65 11/29/22 11:35 Resp 16 11/29/22 11:35 BP 135/86 11/29/22 11:35 Pulse Ox 97 11/29/22 11:35 FiO2 Intake & Output 11/28/22 11/29/22 11/29/22 18:59 06:59 18:59 Intake Total 110 Balance 110 Weight 81.1 kg Intake: Oral 110 Other: Voiding Method Bedside Commode # Voids 1 2 - Exam GENERAL: The patient is sitting in a recliner chair and is not in acute distress. NEUROLOGICAL: Higher mental function: The patient is awake, alert, oriented to self, place and time. Patient is following commands. No aphasia and no neglect. Cranial nerves: The pupils are round, equal and reactive to light and accommodation. Visual herron are full to confrontation throughout. Extraocular movement is intact no nystagmus is noted. Facial sensation is normal to touch throughout. The facial strength is normal throughout. Hearing is mildly decreased bilaterally to hand rub. Tongue is midline and moved [id number] without any difficulty. No dysarthria is noted. Shoulder shrug is normal bilaterally. Motor: The strength is right lower extremity: right ankle dorsiflexion is 3-4 while plantarflexion is 4-4+. Otherwise rest of right lower extremity is 4+. Rest of extremity strength are5 over 5 throughout. Slightly decrease tone over the right lower extremity. Otherwise, normal tone and bulk. Cerebellum: Normal finger to nose bilaterally. Sensation: Sensation is normal to touch throughout. Reflexes (right/left): Right patellar is 1+, bilateral ankles are 0-1. Otherwise 2+ throughout. Plantars are mute bilaterally. Some of the workup during his hospital visit consisted of: Vitamin B12: 737. CT of the head is reported as no acute intercranial process. CT angiography of the head and neck is reported as no evidence of dissection cervical internal carotid artery or vertebral artery or any evidence of significant stenosis at the carotid bifurcation. No evidence of intracranial high-grade stenosis or intracranial aneurysm. Carotid duplex is reported as less than 50% stenosis of bilateral carotid bifurcation. 2-D echo was reported as technically suboptimal and difficult study. The ventricle systolic function is normal. Mild mitral and tricuspid regurgitation. Bubble study is negative for any shunt. No pericardial effusion. MRI brain is reported as mild degenerative and remote ischemic white matter changes. Changes of chronic sinusitis and right mastoiditis. I personally reviewed the MRI and agree there is no acute or subacute ischemic stroke. - Labs CBC & Chem 7: 11/27/22 15:44 11/28/22 06:00 Labs: Abnormal Lab Results - Last 24 Hours (Table) 11/28/22 Range/Units 06:00 Triglycerides 164.00 H (0.00-149.00) mg/dL HDL Cholesterol 36.40 L (40.00-60.00) mg/dL Assessment and Plan Assessment: This is a 77-year-old woman who presents emergency department because of weakne ss and numbness that started initially in the right lower and then noticed of the right upper extremity. She continues to have right lower extremity weakness. Denies of any neck pain or lower back pain. Her MRI of the brain is negative for any acute stroke. Acute right sided weakness with numbness, started in the right lower extremity (right upper extremity resolved): Rule out severe cervical stenosis or lumbar since her right upper extremity has improved. MRI Brain is negative for stroke Acute kidney injury Plan: Pending MRI of the cervical and lumbar spine CK level is normal She was started on aspirin 81 mg, Plavix 75mg and Lipitor 40 mg by the primary team. From a neurologic perspective I'll defer the use of antiplatelet to the primary team since patient does not have any acute stroke. Continue neuro checks PT OT is consulted Orthopedic team is consulted. We'll defer the rest of the medical management to primary team The plan was discussed with the patient. Will continue to follow. Time with Patient: Less than 30
[2022-11-29] MEDS: ATORVASTATIN 40 MG TAB PO SCH (19:33)
--- NOTE | 2022-11-29 20:21 | P.PN ---
Progress Note - Text Progress Note Date: 11/29/22 Chief Complaint: Right-sided weakness This is a very pleasant 77-year-old patient of Dr. Shivani Morales. About 4 days ago patient started off with a head cold runny nose sore throat weak tired muscle aching. Did a home test came back positive for COVID. Started on Paxlovid. Patient went to bed last night doing fine. When she got up this morning she felt off balance. She had to hold onto things. This was around 8:30 this morning. By now she was feeling more and more heavy in the right leg. Also felt that she is unable to hold things with the right and could not write. Speech to to change she's had a slight headache for last 4 days. No change in vision. No trouble swallowing. Current decided to come in. Computed tomography scan of the ER was unremarkable. Consult at the bedside. No prior history of stroke. November 28: Patient presented with a clinical diagnosis stroke. Right-sided weakness remains. Discussed with the patient and son the results currently available. Patient's creatinine has normalized. Stop IV fluids. Has lower extremity edema. 1 dose of IV Lasix. November 29: Continues to have right leg weakness and right arm weakness. MRI of the brain did not show any stroke. Plavix was discontinued therefore. Patient has undergone cervical spine lumbar spine MRI today. Results pending. Patient still having trouble walking. MRI brain reviewed with the radiologist. No acute stroke noted. Active Medications Acetaminophen (Acetaminophen Tab 325 Mg Tab) 650 mg PO Q6HR PRN PRN Reason: Mild Pain or Fever > 100.5 Acetaminophen/Codeine Phosphate (Acetaminophen-Codeine 300-30mg Tab) 1 each PO Q6HR PRN PRN Reason: Pain Alprazolam (Alprazolam 0.25 Mg Tab) 0.25 mg PO Q6HR PRN PRN Reason: Anxiety Aspirin (Aspirin 81 Mg) 81 mg PO DAILY [facility] Last Admin: 11/29/22 09:06 Dose: 81 mg Atorvastatin Calcium (Atorvastatin 40 Mg Tab) 40 mg PO HS [facility] Last Admin: 11/29/22 19:33 Dose: Not Given Calcium Carbonate/Glycine (Calcium Carbonate 500 Mg Chewable) 1,000 mg PO Q4HR PRN PRN Reason: Dyspepsia Chlorthalidone (Chlorthalidone 25 Mg Tab) 25 mg PO DAILY [facility] Last Admin: 11/29/22 09:06 Dose: 25 mg Clopidogrel Bisulfate (Clopidogrel 75 Mg Tab) 75 mg PO DAILY [facility] Last Admin: 11/29/22 09:11 Dose: Not Given Diclofenac Sodium (Diclofenac Sodium Gel 100 Gm Tube) 2 gm TOPICAL BID [facility]; Protocol Last Admin: 11/29/22 19:34 Dose: 2 gm Enoxaparin Sodium (Enoxaparin 40 Mg/0.4 Ml Syringe) 40 mg SQ DAILY [facility] Last Admin: 11/29/22 09:06 Dose: 40 mg Furosemide (Furosemide 10 Mg/Ml 2 Ml Vial) 20 mg IV DAILY [facility] Last Admin: 11/29/22 09:06 Dose: 20 mg Lactulose (Lactulose 20 Gm/30 Ml Cup) 20 gm PO DAILY PRN PRN Reason: Constipation Melatonin (Melatonin 3 Mg Tablet) 3 mg PO HS PRN PRN Reason: Insomnia Naloxone HCl (Naloxone 0.4 Mg/Ml 1 Ml Vial) 0.2 mg IV Q2M PRN PRN Reason: Opioid Reversal Ondansetron HCl (Ondansetron 4 Mg/2 Ml Vial) 4 mg IVP Q8HR PRN PRN Reason: Nausea And Vomiting Past medical history to include: Hypertension, rheumatoid arthritis, hypothyroid, migraine Social history: . No smoking. Alcohol occasionally. Used to work in the bank Physical examination: VITAL SIGNS: 97.7, 74, 17, 1 22 x 67, 98% room air GENERAL: BMI 29.6, up in chair EYES: Pupils equal. Conjunctiva normal. HEENT: External appearance of nose and ears normal, oral cavity grossly normal. NECK: JVD not raised; masses not palpable. HEART: First and second heart sounds are normal; some edema present LUNGS: Respiratory rate normal; clear to auscultation. ABDOMEN: Soft, nontender, liver spleen not palpable, no masses palpable. PSYCH: Alert and oriented x3; mood and affect normal. MUSCULOSKELETAL:No Clubbing/cyanosis;muscles-grossly intact. OA NEUROLOGICAL: [Cranial nerves grossly intact; no facial asymmetry, decreased power or in the right arm 4/5-patient still having trouble with fine movement. Power right leg 2/5. INVESTIGATIONS, reviewed in the clinical context: 2-D echocardiogram: EF 55-60%. Negative bubble study. MRI brain with and without contrast: Chronic changes. November 28: Potassium 3.9 creatinine 0.98 White count 8.5 hemoglobin 13.3 platelets 585 sodium 136 potassium 3.8 BUN 35 creatinine 1.40 EKG tracing personally reviewed by me-poor R-wave progression in anterior leads. Nonspecific T ST segment changes. Chest x-ray film personally reviewed by me-unremarkable Carotid Doppler: Less than 50% stenosis bilateral carotid bifurcation. Renal ultrasound: Corticomedullary differentiation maintained. Left renal simple cyst. CT angiogram to neck:: Negative Assessment and plan: -Acute acute distal right arm weakness and right leg weakness. computed tomography scan was negative. MRI of the brain -chronic changes Carotid Doppler unremarkable. 2-D echo with bubble study -negative Cervical lumbar spine MRI and neuro consult done. Pending results. -Acute kidney injury likely prerenal from diuretic.: Corrected Renal ultrasound shows preserved corticomedullary different sensation. Check UA. Lasix discontinued -Gait dysfunction due to acute stroke PT OT. Evaluated for rehab. -Hypothyroid Synthroid 100 g a day -Chronic bilateral lower extremity venous insufficiency VON stockings -Hyperlipidemia Lipitor 40 mg daily at bedtime -Primary osteoarthritis especially of the shoulder. Voltaren gel. -Essential hypertension Lopressor 25 mg twice a day chlorthalidone -Acute fluid overload from IV fluids. Stop saline. IV Lasix 20 mg 1. Discussed with patient. Await results of MRI cervical spine lumbar spine and orthopedic review. Past Medical History Past Medical History: Deep Vein Thrombosis (DVT), Hypertension, Rheumatoid Arthritis (RA), Thyroid Disorder Additional Past Medical History / Comment(s): hx migrainres, History of Any Multi-Drug Resistant Organisms: None Reported Past Surgical History: Hysterectomy, Tonsillectomy Additional Past Surgical History / Comment(s): vein surgery left leg, dave cataracts Past Anesthesia/Blood Transfusion Reactions: Motion Sickness Past Psychological History: No Psychological Hx Reported Smoking Status: Never smoker Past Alcohol Use History: None Reported Past Drug Use History: None Reported - Past Family History Daughter(s) Family Medical History: Cancer
--- NOTE | 2022-11-29 23:14 | MR ---
EXAMINATION TYPE: MR cspine/lspine wo/w con DATE OF EXAM: 11/29/2022 5:51 PM CLINICAL INDICATION:Female, 77 years old with history of right sided weakness and numbness; , Right s ided weakness and numbness COMPARISON: None TECHNIQUE: Multi planar, multi sequence imaging was performed utilizing: T1-weighted, T2-weighted, a nd turbo inversion recovery imaging of the cervical and lumbar spine. MR contrast: IV Contrast: 8 cc Gadavist, None. FINDINGS: CERVICAL: Alignment: The cervical vertebral bodies have preserved heights. Alignment is within normal limits gi ba patient positioning. Bones: Scattered Modic endplate changes with osteophytes and disc space narrowing. Multilevel degener ative disc disease is noted and most pronounced at the C4-C7 vertebral levels. There is postcontrast enhancement at the level C6, C7 and T1 in the posterior in the back muscles. Cord: Increased cord signal within the right lateral posterior cord at the level of C5 4 mm and at C6 measuring up to 2 mm. Discs: Multilevel disc desiccation is present. C2-C3: No significant disc pathology. The spinal canal is patent. Bilateral facet and uncovertebral joint arthropathy are present with mild right neural foraminal stenosis. The left neural foramen is p atent. C3-C4: A disc osteophyte complex is present with mild spinal canal stenosis. Bilateral facet and unc overtebral joint arthropathy are present with moderate left and mild to moderate neural foraminal dennis nosis. C4-C5: No significant disc pathology. The spinal canal is patent. Bilateral facet and uncovertebral joint arthropathy are present with mild bilateral neural foraminal stenosis. C5-C6: No significant disc pathology. The spinal canal is patent. Bilateral facet and uncovertebral joint arthropathy are present with moderate to severe left and moderate neural foraminal stenosis. C6-C7: A disc osteophyte complex is present with mild spinal canal stenosis. Bilateral facet and unc overtebral joint arthropathy are present with moderate to severe bilateral neural foraminal stenosis. C7-T1: No significant disc pathology. The spinal canal is patent. No neural foraminal stenosis. T1-T2 posterior osteophytes which compress the spinal cord with moderate spinal cord stenosis. These deform the spinal cord at this level. Other: None. LUMBAR: Alignment: The lumbar vertebral bodies have preserved heights and alignment. Cord: The conus medullaris and the distal spinal cord appear unremarkable with regards to their signa l intensity and morphology. Bones/Discs: Multilevel disc degeneration changes throughout the lumbar spine with disc space narrowi ng facet joint arthropathy and Modic endplate changes. Disc desiccation is present multiple levels. P seudoarticulation of the spinous processes with enhancement near the L3-L4 spinous process. T12-L1: No evidence of significant spinal canal stenosis or neural foraminal stenosis. L1-L2: No evidence of significant spinal canal stenosis or neural foraminal stenosis. L2-L3: Disc bulge and facet joint arthropathy result in mild spinal canal and mild bilateral neural f oraminal stenosis. L3-L4: Disc bulge and facet joint arthropathy result in mild spinal canal and mild to moderate bilate ral neural foraminal stenosis. There is abnormal postcontrast enhancement near the spinous process of L3 and L4 best appreciated on series 1401 image 10 and 7 L4-L5: Disc bulge and facet joint arthropathy result in severe spinal canal and moderate bilateral ne ural foraminal stenosis. L5-S1: The disc is rounded posterior morphology without significant spinal canal stenosis. Facet join t arthropathy with moderate to severe left and mild right. Neural foraminal stenosis. Other findings: Simple appearing left renal cyst. IMPRESSION: Cervical spine: * Moderate to severe disc degeneration changes of the cervical spine with neural foraminal stenosis worse at left C5-C6 and bilateral C6-C7 with moderate to severe stenosis. * Cervical spinal cord increased signal at the posterior right aspect at the level of C5 and C6 kevin uring 4 mm at C5 and 2 mm at C6. Correlate for prior injury and/or myelomalacia. * T1-T2 posterior osteophytes from the facet joints impress upon the spinal cord and deform the spin al cord at this level. * Active inflammation at the level of C6-T1 in the posterior muscles of the back. Lumbar spine: * L4-L5 severe spinal canal stenosis secondary disc bulge and facet joint arthropathy. * Disc degeneration changes and facet joint arthropathy worse at L5-S1 one in the left with moderate to severe neural foraminal stenosis. 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
[2022-11-30] MEDS: CLOPIDOGREL 75 MG TAB PO SCH (08:30)
[2022-11-30] MEDS: ASPIRIN 81 MG PO SCH (08:32)
[2022-11-30] MEDS: FUROSEMIDE 10 MG/ML 2 ML VIAL IV SCH (08:32)
[2022-11-30] MEDS: CHLORTHALIDONE 25 MG TAB PO SCH (08:32)
[2022-11-30] MEDS: ENOXAPARIN 40 MG/0.4 ML SYRINGE SQ SCH (08:32)
[2022-11-30] MEDS: DICLOFENAC SODIUM GEL 100 GM TUBE TOPICAL SCH ×2 (08:33→20:14)
--- NOTE | 2022-11-30 12:59 | P.PN ---
Progress Note - Text Progress Note Date: 11/30/22 Imaging review Cervical MRI: IMages reviewed. This demonstrates multilevel spondylosis with severe stenosis from C4-7 due to spondylosis, disc herniation and collapse. There is grade I spondylolisthesis of C3-4 causing bilateral foraminal stenosis that is moderate. There is reversal of the normal cervical lordosis. There is a large HNP at T1- 2 as well causing moderate to severe stenosis. No fractures noted. C0-1 and C1-2 are stable. No lesions Lumbar MRI: Images reviewed. Multilevel spondylosis noted with disc dessication, facet hypertrophy and ligamental hypertrophy causing moderate stenosis L1-3. At L4-5 there is a Grade I spondylolisthesis with severe stenosis central and b/l foraminal. There is degenerative changes L5-S1 causing moderate central and b/l foraminal stenosis as well. There is flattening of the normal LL. No fractures noted. No lesions. I have discussed the case at length with my PA Leopoldo Islas. At this time it seems that she is experiencing more myelopathic type changes than radicular or lumbar issues. She is exhibiting gait disturbance that could also be caused by the severe L4-5 stenosis but the UE and LE symptoms together are more indicative of cervical pathology. She would need fairly extensive surgery in her neck in the form of anterior C3-6 possibly C7 ACDF followed by a C2-T2 decompression and fusion poseriorly. Anterior surgery is 2.5 hrs and posterior surgery is 2-2.5 hrs as well with total blood loss around 400 for both potential. In the low back she would need a decompression of L4-5 with possible fusion. This is a 1.5 hr surgery with blood loss around 150cc. She has multiple issues with this and comorbid conditions but due to her neurological status likely requires decompression and stabilization of these issues at some point. Conservative measures can be exhausted in the hospital to determine if she is going to benefit from these, if she does not then she maria teresa need surgery.
[2022-11-30] MEDS ORDERED: DEXAMETHASONE SOD PHOSPHATE 4 MG/ML 1 ML VIAL IVP PRN (13:35)
--- NOTE | 2022-11-30 14:13 | P.PN ---
Subjective Progress Note Date: 11/30/22 I am following up with patient and she feels she is improving compared to initial presentation. Objective - Vital Signs Vital signs: Vital Signs Temp 97.7 F 11/30/22 07:45 Pulse 64 11/30/22 08:33 Resp 19 11/30/22 08:33 BP 128/83 11/30/22 07:45 Pulse Ox 98 11/30/22 07:45 FiO2 Intake & Output 11/29/22 11/30/22 11/30/22 18:59 06:59 18:59 Intake Total 110 Balance 110 Weight 80.1 kg Intake: Oral 110 Other: Voiding Method Toilet # Voids 2 3 - Exam GENERAL: The patient is sitting in a recliner chair and is not in acute dis tress. NEUROLOGICAL: Higher mental function: The patient is awake, alert, oriented to self, place and time. Patient is following commands. No aphasia and no neglect. Cranial nerves: The pupils are round, equal and reactive to light and accommodation. Visual herron are full to confrontation throughout. Extraocular movement is intact no nystagmus is noted. Facial sensation is normal to touch t hroughout. The facial strength is normal throughout. Hearing is mildly decreased bilaterally to hand rub. Tongue is midline and moved [id number] without any difficulty. No dysarthria is noted. Shoulder shrug is normal bilaterally. Motor: The strength is right lower extremity: right ankle dorsiflexion is 3-4 while plantarflexion is 4-4+. Otherwise rest of right lower extremity is 4+. Rest of extremity strength are5 over 5 throughout. Slightly decrease tone over the right lower extremity. Otherwise, normal tone and bulk. Cerebellum: Normal finger to nose bilaterally. Sensation: Sensation is normal to touch throughout. Reflexes (right/left): Right patellar is 1+, bilateral ankles are 0-1. Otherwise 2+ throughout. Plantars are mute bilaterally. Some of the workup during his hospital visit consisted of: Vitamin B12: 737. CT of the head is reported as no acute intercranial process. CT angiography of the head and neck is reported as no evidence of dissection cervical internal carotid artery or vertebral artery or any evidence of significant stenosis at the carotid bifurcation. No evidence of intracranial high-grade stenosis or intracranial aneurysm. Carotid duplex is reported as less than 50% stenosis of bilateral carotid bifurcation. 2-D echo was reported as technically suboptimal and difficult study. The ventricle systolic function is normal. Mild mitral and tricuspid regurgitation. Bubble study is negative for any shunt. No pericardial effusion. MRI brain is reported as mild degenerative and remote ischemic white matter changes. Changes of chronic sinusitis and right mastoiditis. I personally reviewed the MRI and agree there is no acute or subacute ischemic stroke. MRI of the cervical spine was reported as moderate to severe disc degenerative changes of the cervical spine with neuroforaminal stenosis worse at L5 C6 and bilateral C6-C7 with moderate to severe stenosis. Cervical spine cord increased signal at the posterior right aspect at the level of C5 and C6 measuring 4 mm at C5 and 2 mm@C6. Correlate for prior injury and/or myelomalacia. T L1 to T2 posterior osteophyte from the facet joint at past upon the spinal cord and def orms the spinal cord at this level. Active inflammation at the level of C6 to T1 in the posterior muscle of the back. MRI lumbar spine is reported as L4-L5 severe spinal canal stenosis secondary due to disc bulge and facet joint arthropathy. Disc degeneration changes at the facet joint arthropathy worse at L5-S1 on the left with moderate to severe neuroforaminal stenosis. 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 - Labs CBC & Chem 7: 11/27/22 15:44 11/28/22 06:00 Assessment and Plan Assessment: This is a 77-year-old woman who presents emergency department because of weakness and numbness that started initially in the right lower and then noticed of the right upper extremity. She continues to have right lower extremity weakness. Denies of any neck pain or lower back pain. Her MRI of the brain is negative for any acute stroke. Acute right sided weakness with numbness, started in the right lower extremity (right upper extremity resolved): It appears has severe cervical and lumbar stenosis with cervical myelpathy radiographically. Acute kidney injury Plan: For her severe cervical and lumbar spinal stenosis with cervical myleopathy radiographically: Orthopedic surgery is on board and are consider possible surgery. CK level is normal She was started on aspirin 81 mg, Plavix 75mg and Lipitor 40 mg by the primary team. From a neurologic perspective I'll defer the use of antiplatelet to the primary team since patient does not have any acute stroke. Continue neuro checks PT OT is consulted We'll defer the rest of the medical management to primary team The plan was discussed with the patient. There is no further neurological work-up. Please notify neurology team if any further concerns. Time with Patient: Less than 30
--- NOTE | 2022-11-30 15:20 | P.PAINPG ---
Objective - Vital Signs Vital signs: Vital Signs Temp 98.0 F 11/30/22 14:00 Pulse 77 11/30/22 14:00 Resp 18 11/30/22 14:00 BP 118/83 11/30/22 14:00 Pulse Ox 97 11/30/22 14:00 FiO2 Intake & Output 11/29/22 11/30/22 11/30/22 18:59 06:59 18:59 Intake Total 110 Balance 110 Weight 80.1 kg Intake: Oral 110 Other: Voiding Method Toilet # Voids 2 3 - Labs CBC & Chem 7: 11/27/22 15:44 11/28/22 06:00 PQRS Measure Charge Sheet Comment: HISTORY OF PRESENT ILLNESS: 77 yr old inpatient female w son at side as a referral from [facility] presents today w severe and chronic LBP secondary to L4-L5 severe spinal stenosis, DDD and facet arthropathy without myelopathy for evaluation. Pt states pain level is provoked at 10 /10 in intensity, constant, localized in the mid to lower lumbar spine, sharp, achy in character w shooting pain towards the BLEs. Pain is provoked by any movement. Pain is alleviated by medications, repositioning and rest. Pt is interested in an JANEEN for pain relief. PMH: OA, DVT, HTN, RA, Hypothyroid Disorder, Migraine HAs PSH: Hysterectomy, Tonsillectomy, BL Cataract Removal, LLE Vein Surgery SH: Negative x3 FH: Daughter- [place] All: See list Meds: See list REVIEW OF ORGAN SYSTEMS: CONSTITUTIONAL: No fevers or chills. No recent weight loss. NEUROLOGICAL: + numbness and tingling along the distal extremities. No seizure disorders or headaches. MUSCULOSKELETAL: + pain PSYCHIATRIC: Denies current depression or suicidal thoughts. Physical Examinations : Constitutional : Cooperative , not in acute distress . Neurologic : Cranial nerve II to XII intact. No focal neurological deficits. Psychiatric : alert & oriented x 3. Matching mood & appropriate affect. Judgment & insight intact. Musculoskeletal : Cervical Spine Motor strength in the deltoid and biceps: Normal right side. Normal Left side Motor strength biceps and the wrist extensors: Normal right side . Normal left side Motor strength in the triceps muscle: Normal right side. Normal left side Deep tendon reflexes: Normal at the biceps. Normal at Brachioradialis. Normal at triceps Vertebral body tenderness to deep palpation over Cervical facet loading test: positive bilaterally Spurling test: positive bilaterally Neck distraction test: positive bilaterally Tila sign: positive bilaterally Lumbar spine Motor strength lower extremities ,thigh and legs 5/5 Right side , 5/5 Left side Deep tendon reflexes : Normal Knee Jerk. Normal Ankle Jerk Vertebral body tenderness over L4 Vaughan Test positive over BL L4-L5 Lumbar facet Loading Test: positive Right / positive Left Range of motion of the lumbar spine Flexion 30 degrees, extension 10 degrees Straight Leg Raise test: Left/ Right positive at degree Ann test: positive right / positive left. Severe tenderness over the Sacroiliac joint on the Right / Left sides Gaenslen test: positive bilaterally Seated flexion test: positive bilaterally. Sacral spine : Severe tenderness over the Sacroiliac joint: right side / left side Range of motion: Flexion of the lumbar spine <60 degrees Range of motion: Extension of the lumbar spine <20 degrees Gaenslen's Test positive Mendoza's Test positive Ann test: positive right side / left side Thigh Thrust Test Sacral Thrust Test Imaging: MRI noncontrast of the lumbar spine from 11/29/22 reviewed Assessment/ Plan : L4-L5 severe spinal stenosis, lumbar DDD Recommendation of JANEEN L4-L5 #1. May need a series of injections for optimal pain relief. Risks, benefits of procedure discussed and patient verbalized understanding. Admits to Plavix, ASA and Lovenox use. Protocol for discontinuation/ continuation of medications francheska procedure ordered. NPO after midnight prior to day of procedure. Minimal anesthesia provided, if clinically indicated, consisting of Versed and Fentanyl. All questions answered. I have spent greater than 30 minutes on patient care today. Dr Cota was available by phone for the evaluation of this patient. The time was used to review the medical records including relevant urine studies and Prescription history (MAPs), review of the available imaging, evaluation and examination of the patient, coordination of care with the medical staff and if applicable referring physicians, as well as creation of the medical record PQRS Narrative: Blood Pressure [Left Arm] 118/83 Blood Pressure 147/90 Pain Intensity [None] 0 Pain Intensity 0 Pain Scale Used Numeric (1 - 10) Scale Used Numeric (1 - 10) Home Medications: Ambulatory Orders Levothyroxine Sodium [Synthroid] 100 mcg PO DAILY 05/27/21 Simvastatin [Zocor] 20 mg PO DIRECTED 05/27/21 Diclofenac Sodium [Voltaren] 75 mg PO BID 11/27/22 Furosemide [Lasix] 20 mg PO DAILY 11/27/22 NIFEdipine XL [Procardia XL] 60 mg PO DAILY 11/27/22 Nirmatrelvir/Ritonavir [Paxlovid 2X150 mg-100 mg (Eua)] 1 dose PO BID 11/27/22 Controlled Substance Measures - Controlled Substance Measures Is patient prescribed a controlled substance at discharge?: No
--- NOTE | 2022-11-30 16:11 | P.PN ---
Subjective Progress Note Date: 11/30/22 Principal diagnosis: Right lower extremity weakness; radiculopathy; gait disturbance Patient was seen at bedside this afternoon sitting up in chair. Son was present during encounter. Patient says she is still having issues when she is getting up trying to walk using walker. She says she has to, drag her right leg along knee shuffling steps. Patient feels that there has been some improvement overall since she is admitted to the hospital couple days ago. Patient denies any other changes at this time. She still says there is numbness and tingling going from the right knee down to the right foot. Patient denies chest pain, fever, shortness of breath, nausea, vomiting, change in vision, loss of bowel/bladder control. Objective - Vital Signs Vital signs: Vital Signs Temp 97.7 F 11/30/22 07:45 Pulse 64 11/30/22 08:33 Resp 19 11/30/22 08:33 BP 128/83 11/30/22 07:45 Pulse Ox 98 11/30/22 07:45 FiO2 Intake & Output 11/29/22 11/30/22 11/30/22 18:59 06:59 18:59 Intake Total 110 Balance 110 Weight 80.1 kg Intake: Oral 110 Other: Voiding Method Toilet # Voids 2 3 - Exam Inspection: Negative for any open fractures, significant erythema/ecchymosis/open wounds. Sensation: Patient does have sensation throughout bilateral upper and lower extremities. However, sensation is altered from the right knee down to the right foot in the area where patient has numbness. Sensation is somewhat dull from right knee to right foot. Palpation: Nontender to palpation throughout exam Range of motion: Patient does have limited range of motion in right ankle dorsiflexion and in EHL/FHL on the right. Full range of motion. Left lower extremity and exam. Full range of motion throughout rest of right lower extremity exam. Patient does have full range of motion throughout bilateral upper extremities on exam. Motor: 4+/5 in all major motor groups in bilateral upper extremities. 4-/5 in resisted right ankle dorsi/plantar flexion and EHL/FHL. 4/5 throughout other major motor groups in right lower extremity. 4+/5 in all major motor groups left lower extremity. Neurovascular: DP pulses 2+ bilaterally. Cap refill under 3 seconds in digits of upper extremities Special tests: Negative Homans bilaterally. Negative clonus bilaterally. Negative Tila bilaterally - Labs CBC & Chem 7: 11/27/22 15:44 11/28/22 06:00 Assessment and Plan Assessment: 1. Right lower extremity weakness, numbness; gait disturbance Plan: 1. Right lower extremity weakness, numbness; gait disturbance - patient stable at bedside this afternoon. I did review the cervical and lumbar MRIs with my attending, Dr. Prater. I did discuss the findings of the MRIs with the patient and her son at bedside this afternoon. There is multilevel spondylosis and severe stenosis from C4 through C7 as well as disc herniation. In the lumbar MRI there is L4-5 severe stenosis centrally and bilateral foraminal stenosis. L5-S1 does present with moderate central canal and neuro foraminal stenosis. Due to the patient having issues holding a pencil and with fine motor skill activities, this may very well likely be due to the changes in her cervical spine. No weakness in the right lower extremity and numbness could potentially be caused by the lower lumbar spine stenosis. Patient would like to pursue conservative measures at this time. PT/OT are following patient and pain management was consulted for potential epidural steroid injection the lumbar spine. Decadron 4 mg every 6 hours was ordered for symptom medical control. We will continue to follow patient during her stay in hospital. 2. Appreciate medical management 3. Pain management - Tylenol with Codeine 4. DVT prophylaxis - aspirin; Plavix 5. GI prophylaxis - lactulose; Tums 6. PT/OT - weightbearing as tolerated with walker Time with Patient: Less than 30
--- NOTE | 2022-11-30 17:45 | P.PN ---
Progress Note - Text Progress Note Date: 11/30/22 Chief Complaint: Right-sided weakness This is a very pleasant 77-year-old patient of Dr. Shivani Morales. About 4 days ago patient started off with a head cold runny nose sore throat weak tired muscle aching. Did a home test came back positive for COVID. Started on Paxlovid. Patient went to bed last night doing fine. When she got up this morning she felt off balance. She had to hold onto things. This was around 8:30 this morning. By now she was feeling more and more heavy in the right leg. Also felt that she is unable to hold things with the right and could not write. Speech to to change she's had a slight headache for last 4 days. No change in vision. No trouble swallowing. Current decided to come in. Computed tomography scan of the ER was unremarkable. Consult at the bedside. No prior history of stroke. November 28: Patient presented with a clinical diagnosis stroke. Right-sided weakness remains. Discussed with the patient and son the results currently available. Patient's creatinine has normalized. Stop IV fluids. Has lower extremity edema. 1 dose of IV Lasix. November 29: Continues to have right leg weakness and right arm weakness. MRI of the brain did not show any stroke. Plavix was discontinued therefore. Patient has undergone cervical spine lumbar spine MRI today. Results pending. Patient still having trouble walking. MRI brain reviewed with the radiologist. No acute stroke noted. November 30: MRI spine and lumbar spine showing multiple levels of significant DJD and 80 of encroachment on the spinal cord. Given upper extremity also involved likely culprit is a cervical spine. IV steroids. Given the acute presentation we'll see while steroids help. Follow with Dr. Prater. No improvement of the leg slight improvement of the right hand. She is able to write a bit today. Active Medications Acetaminophen (Acetaminophen Tab 325 Mg Tab) 650 mg PO Q6HR PRN PRN Reason: Mild Pain or Fever > 100.5 Acetaminophen/Codeine Phosphate (Acetaminophen-Codeine 300-30mg Tab) 1 each PO Q6HR PRN PRN Reason: Pain Alprazolam (Alprazolam 0.25 Mg Tab) 0.25 mg PO Q6HR PRN PRN Reason: Anxiety Aspirin (Aspirin 81 Mg) 81 mg PO DAILY [facility] Last Admin: 11/30/22 08:32 Dose: 81 mg Atorvastatin Calcium (Atorvastatin 40 Mg Tab) 40 mg PO HS [facility] Last Admin: 11/29/22 19:33 Dose: Not Given Calcium Carbonate/Glycine (Calcium Carbonate 500 Mg Chewable) 1,000 mg PO Q4HR PRN PRN Reason: Dyspepsia Chlorthalidone (Chlorthalidone 25 Mg Tab) 25 mg PO DAILY [facility] Last Admin: 11/30/22 08:32 Dose: 25 mg Clopidogrel Bisulfate (Clopidogrel 75 Mg Tab) 75 mg PO DAILY [facility] Last Admin: 11/30/22 08:30 Dose: Not Given Dexamethasone Sodium Phosphate (Dexamethasone Sod Phosphate 4 Mg/Ml 1 Ml Vial) 4 mg IVP Q6HR PRN PRN Reason: Nausea And Vomiting Last Admin: 11/30/22 13:54 Dose: 4 mg Diclofenac Sodium (Diclofenac Sodium Gel 100 Gm Tube) 2 gm TOPICAL BID [facility]; Protocol Last Admin: 11/30/22 08:33 Dose: 2 gm Enoxaparin Sodium (Enoxaparin 40 Mg/0.4 Ml Syringe) 40 mg SQ DAILY [facility] Last Admin: 11/30/22 08:32 Dose: 40 mg Lactulose (Lactulose 20 Gm/30 Ml Cup) 20 gm PO DAILY PRN PRN Reason: Constipation Melatonin (Melatonin 3 Mg Tablet) 3 mg PO HS PRN PRN Reason: Insomnia Naloxone HCl (Naloxone 0.4 Mg/Ml 1 Ml Vial) 0.2 mg IV Q2M PRN PRN Reason: Opioid Reversal Ondansetron HCl (Ondansetron 4 Mg/2 Ml Vial) 4 mg IVP Q8HR PRN PRN Reason: Nausea And Vomiting Past medical history to include: Hypertension, rheumatoid arthritis, hypothyroid, migraine Social history: . No smoking. Alcohol occasionally. Used to work in the [employer] Physical examination: VITAL SIGNS: 98, 77, 18, 118/83, 97% room air GENERAL: BMI 29.6, up in chair EYES: Pupils equal. Conjunctiva normal. HEENT: External appearance of nose and ears normal, oral cavity grossly normal. NECK: JVD not raised; masses not palpable. HEART: First and second heart sounds are normal; some edema present LUNGS: Respiratory rate normal; clear to auscultation. ABDOMEN: Soft, nontender, liver spleen not palpable, no masses palpable. PSYCH: Alert and oriented x3; mood and affect normal. MUSCULOSKELETAL:No Clubbing/cyanosis;muscles-grossly intact. OA NEUROLOGICAL: [Cranial nerves grossly intact; no facial asymmetry, decreased power or in the right arm 4/5-patient able to write a bit today.. Power right leg 2/5. INVESTIGATIONS, reviewed in the clinical context: Cervical lumbar spine MRI: C5-C6, C6-C7, moderate to severe stenosis, cervical spinal cord increased signal level of C5-C6. Also active inflammation at the level of C6 T1. Also findings at L4-L5 severe spinal canal stenosis. Secondary to disc bulge. 2-D echocardiogram: EF 55-60%. Negative bubble study. MRI brain with and without contrast: Chronic changes. November 28: Potassium 3.9 creatinine 0.98 White count 8.5 hemoglobin 13.3 platelets 585 sodium 136 potassium 3.8 BUN 35 creatinine 1.40 EKG tracing personally reviewed by me-poor R-wave progression in anterior leads. Nonspecific T ST segment changes. Chest x-ray film personally reviewed by me-unremarkable Carotid Doppler: Less than 50% stenosis bilateral carotid bifurcation. Renal ultrasound: Corticomedullary differentiation maintained. Left renal simple cyst. CT angiogram to neck:: Negative Assessment and plan: -Acute acute distal right arm weakness and right leg weakness. Likely secondary to C5-C6, C6-C7. Also severe stenosis L4-L5 with disc bulge. And severe involvement of neural foramina stenosis Stroke workup negative Cervical lumbar spine MRI and neuro consult done. Pending results. -Acute kidney injury likely prerenal from diuretic.: Corrected Renal ultrasound shows preserved corticomedullary different sensation. 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 Prater. IV steroids. -Hypothyroid Synthroid 100 g a day -Chronic bilateral lower extremity venous insufficiency VON stockings -Hyperlipidemia Lipitor 40 mg daily at bedtime -Primary osteoarthritis especially of the shoulder. Voltaren gel. -Essential hypertension Lopressor 25 mg twice a day chlorthalidone -Acute fluid overload from IV fluids.: Better Stop saline. Given Lasix Follow with Dr. Prater. IV steroids. Patient may need surgical intervention. Past Medical History Past Medical History: Deep Vein Thrombosis (DVT), Hypertension, Rheumatoid Art hritis (RA), Thyroid Disorder Additional Past Medical History / Comment(s): hx migrainres, History of Any Multi-Drug Resistant Organisms: None Reported Past Surgical History: Hysterectomy, Tonsillectomy Additional Past Surgical History / Comment(s): vein surgery left leg, dave cataracts Past Anesthesia/Blood Transfusion Reactions: Motion Sickness Past Psychological History: No Psychological Hx Reported Smoking Status: Never smoker Past Alcohol Use History: None Reported Past Drug Use History: None Reported - Past Family History Daughter(s) Family Medical History: Cancer
[2022-11-30] MEDS: ATORVASTATIN 40 MG TAB PO SCH (20:11)
[2022-11-30] MEDS: DEXAMETHASONE SOD PHOSPHATE 4 MG/ML 1 ML VIAL IVP SCH (20:12)
[2022-12-01] MEDS: DEXAMETHASONE SOD PHOSPHATE 4 MG/ML 1 ML VIAL IVP SCH ×4 (01:38→21:06)
[2022-12-01] MEDS: CLOPIDOGREL 75 MG TAB PO SCH (07:39)
[2022-12-01] MEDS: ASPIRIN 81 MG PO SCH (07:39)
[2022-12-01 07:49] LABS: African American GFR (CKD) 63 (>60 ml/min/1.73 sqM); Anion Gap 8 mmol/L; Blood Urea Nitrogen 37 mg/dL (7-17); Calcium 9.2 mg/dL (8.4-10.2); Carbon Dioxide 29 mmol/L (22-30); Chloride 99 mmol/L (98-107); Glucose 118 mg/dL (74-99); Non-African American GFR(CKD) 55 (>60 ml/min/1.73 sqM); Potassium 4.3 mmol/L (3.5-5.1); Sodium 136 mmol/L (137-145)
[2022-12-01] MEDS: CHLORTHALIDONE 25 MG TAB PO SCH (08:13)
[2022-12-01] MEDS: ENOXAPARIN 40 MG/0.4 ML SYRINGE SQ SCH (08:14)
[2022-12-01] MEDS: DICLOFENAC SODIUM GEL 100 GM TUBE TOPICAL SCH ×2 (08:14→21:06)
--- NOTE | 2022-12-01 10:46 | P.PN ---
Subjective Progress Note Date: 12/01/22 Principal diagnosis: Right lower extremity weakness; radiculopathy; gait disturbance Patient was seen at bedside this morning sitting up in chair doing sudoku/crossword puzzles. Patient states that since starting on IV steroids she has had some resolution in her fine motor skills in her hand is not shaky when she holds a pencil like it was when she first came in to the hospital. Patient says she did talk with pain management doctor yesterday and is planning for an epidural steroid injection into her low back on Sunday. Patient denies any other changes at this time. She still says there is numbness and tingling going from the right knee down to the right foot. Patient denies chest pain, fever, shortness of breath, nausea, vomiting, change in vision, loss of bowel/bladder control. Objective - Vital Signs Vital signs: Vital Signs Temp 98.9 F 12/01/22 07:27 Pulse 98 12/01/22 07:27 Resp 17 12/01/22 07:27 BP 172/86 12/01/22 07:27 Pulse Ox 98 12/01/22 07:27 FiO2 Intake & Output 11/30/22 12/01/22 12/01/22 18:59 06:59 18:59 Other: Voiding Method Toilet # Voids 3 - Exam Inspection: Negative for any open fractures, significant erythema/ecchymosis/open wounds. Sensation: Patient does have sensation throughout bilateral upper and lower extremities. However, sensation is altered from the right knee down to the right foot in the area where patient has numbness. Sensation is somewhat dull from right knee to right foot. Palpation: Nontender to palpation throughout exam Range of motion: Patient does have limited range of motion in right ankle dorsiflexion and in EHL/FHL on the right. Full range of motion. Left lower extremity and exam. Full range of motion throughout rest of right lower extremity exam. Patient does have full range of motion throughout bilateral upper extremities on exam. Motor: 4+/5 in all major motor groups in bilateral upper extremities. 4-/5 in resisted right ankle dorsi/plantar flexion and EHL/FHL. 4/5 throughout other major motor groups in right lower extremity. 4+/5 in all major motor groups left lower extremity. Neurovascular: DP pulses 2+ bilaterally. Cap refill under 3 seconds in digits of upper extremities Special tests: Negative Homans bilaterally. Negative clonus bilaterally. Negative Tila bilaterally - Labs CBC & Chem 7: 11/27/22 15:44 12/01/22 05:43 Labs: Abnormal Lab Results - Last 24 Hours (Table) 12/01/22 Range/Units 05:43 Sodium 136 L (137-145) mmol/L BUN 37 H (7-17) mg/dL Glucose 118 H (74-99) mg/dL Assessment and Plan Assessment: 1. Right lower extremity weakness, numbness; gait disturbance Plan: 1. Right lower extremity weakness, numbness; gait disturbance - patient stable at bedside this morning. Pain management did see patient yesterday and is planning on performing an epidural steroid injection on Sunday in the lumbar spine. Since starting on IV steroids, patient is having some resolution in symptoms in her right upper extremity. No weakness in the right lower extremity and numbness could potentially be caused by the lower lumbar spine stenosis. Patient would like to pursue conservative measures at this time. PT/OT are following patient. continue Decadron 4 mg every 6 hours was ordered for symptom medical control. We do recommend patient to follow-up in the outpatient setting with Dr. Prater for continued evaluation. Patient is stable from orthopedic standpoint for discharge. Orthopedics is signing off at this time. Please do not hesitate to contact us for any further questions. 2. Appreciate medical management 3. Pain management - Tylenol with Codeine 4. DVT prophylaxis - aspirin; Plavix 5. GI prophylaxis - lactulose; Tums 6. PT/OT - weightbearing as tolerated with walker Time with Patient: Less than 30
--- NOTE | 2022-12-01 15:04 | P.PN ---
Progress Note - Text Progress Note Date: 12/01/22 Chief Complaint: Right-sided weakness This is a very pleasant 77-year-old patient of Dr. Shivani Morales. About 4 days ago patient started off with a head cold runny nose sore throat weak tired muscle aching. Did a home test came back positive for COVID. Started on Paxlovid. Patient went to bed last night doing fine. When she got up this morning she felt off balance. She had to hold onto things. This was around 8:30 this morning. By now she was feeling more and more heavy in the right leg. Also felt that she is unable to hold things with the right and could not write. Speech to to change she's had a slight headache for last 4 days. No change in vision. No trouble swallowing. Current decided to come in. Computed tomography scan of the ER was unremarkable. Consult at the bedside. No prior history of stroke. November 28: Patient presented with a clinical diagnosis stroke. Right-sided weakness remains. Discussed with the patient and son the results currently available. Patient's creatinine has normalized. Stop IV fluids. Has lower extremity edema. 1 dose of IV Lasix. November 29: Continues to have right leg weakness and right arm weakness. MRI of the brain did not show any stroke. Plavix was discontinued therefore. Patient has undergone cervical spine lumbar spine MRI today. Results pending. Patient still having trouble walking. MRI brain reviewed with the radiologist. No acute stroke noted. November 30: MRI spine and lumbar spine showing multiple levels of significant DJD and 80 of encroachment on the spinal cord. Given upper extremity also involved likely culprit is a cervical spine. IV steroids. Given the acute presentation we'll see while steroids help. Follow with Dr. Prater. No improvement of the leg slight improvement of the right hand. She is able to write a bit today. December 01: Patient started on IV Decadron yesterday. Very slight improvement in the right leg. Able to write with the right hand. Discussed with the patient. We'll see how the patient does over the weekend. Obviously less incl ined for any surgery. She'll discussed with Dr. Prater. Active Medications Acetaminophen (Acetaminophen Tab 325 Mg Tab) 650 mg PO Q6HR PRN PRN Reason: Mild Pain or Fever > 100.5 Acetaminophen/Codeine Phosphate (Acetaminophen-Codeine 300-30mg Tab) 1 each PO Q6HR PRN PRN Reason: Pain Alprazolam (Alprazolam 0.25 Mg Tab) 0.25 mg PO Q6HR PRN PRN Reason: Anxiety Aspirin (Aspirin 81 Mg) 81 mg PO DAILY REPLACED BY [facility] Last Admin: 12/01/22 07:39 Dose: Not Given Atorvastatin Calcium (Atorvastatin 40 Mg Tab) 40 mg PO HS REPLACED BY [facility] Last Admin: 11/30/22 20:11 Dose: Not Given Calcium Carbonate/Glycine (Calcium Carbonate 500 Mg Chewable) 1,000 mg PO Q4HR PRN PRN Reason: Dyspepsia Chlorthalidone (Chlorthalidone 25 Mg Tab) 25 mg PO DAILY REPLACED BY [facility] Last Admin: 12/01/22 08:13 Dose: 25 mg Clopidogrel Bisulfate (Clopidogrel 75 Mg Tab) 75 mg PO DAILY REPLACED BY [facility] Last Admin: 12/01/22 07:39 Dose: Not Given Dexamethasone Sodium Phosphate (Dexamethasone Sod Phosphate 4 Mg/Ml 1 Ml Vial) 4 mg IVP Q6H REPLACED BY [facility] Last Admin: 12/01/22 13:34 Dose: 4 mg Diclofenac Sodium (Diclofenac Sodium Gel 100 Gm Tube) 2 gm TOPICAL BID REPLACED BY [facility]; Protocol Last Admin: 12/01/22 08:14 Dose: Not Given Enoxaparin Sodium (Enoxaparin 40 Mg/0.4 Ml Syringe) 40 mg SQ DAILY REPLACED BY [facility] Last Admin: 12/01/22 08:14 Dose: 40 mg Lactulose (Lactulose 20 Gm/30 Ml Cup) 20 gm PO DAILY PRN PRN Reason: Constipation Melatonin (Melatonin 3 Mg Tablet) 3 mg PO HS PRN PRN Reason: Insomnia Naloxone HCl (Naloxone 0.4 Mg/Ml 1 Ml Vial) 0.2 mg IV Q2M PRN PRN Reason: Opioid Reversal Ondansetron HCl (Ondansetron 4 Mg/2 Ml Vial) 4 mg IVP Q8HR PRN PRN Reason: Nausea And Vomiting Past medical history to include: Hypertension, rheumatoid arthritis, hypothyroid, migraine Social history: . No smoking. Alcohol occasionally. Used to work in the [employer] Physical examination: VITAL SIGNS: 98.9, 98, 17, 1:30/77, 98% room air GENERAL: up in chair EYES: Pupils equal. Conjunctiva normal. HEENT: External appearance of nose and ears normal, oral cavity grossly normal. NECK: JVD not raised; masses not palpable. HEART: First and second heart sounds are normal; some edema present LUNGS: Respiratory rate normal; clear to auscultation. ABDOMEN: Soft, nontender, liver spleen not palpable, no masses palpable. PSYCH: Alert and oriented x3; mood and affect normal. MUSCULOSKELETAL:No Clubbing/cyanosis;muscles-grossly intact. OA NEUROLOGICAL: [Cranial nerves grossly intact; no facial asymmetry, decreased power or in the right arm 4/5-patient able to write better Power right leg 2/5. INVESTIGATIONS, reviewed in the clinical context: December 01: Potassium 4.3 creatinine 0.99. TSH 2.6 Cervical lumbar spine MRI: C5-C6, C6-C7, moderate to severe stenosis, cervical spinal cord increased signal level of C5-C6. Also active inflammation at the level of C6 T1. Also findings at L4-L5 severe spinal canal stenosis. Secondary to disc bulge. 2-D echocardiogram: EF 55-60%. Negative bubble study. MRI brain with and without contrast: Chronic changes. November 28: Potassium 3.9 creatinine 0.98 White count 8.5 hemoglobin 13.3 platelets 585 sodium 136 potassium 3.8 BUN 35 creatinine 1.40 EKG tracing personally reviewed by me-poor R-wave progression in anterior leads. Nonspecific T ST segment changes. Chest x-ray film personally reviewed by me-unremarkable Carotid Doppler: Less than 50% stenosis bilateral carotid bifurcation. Renal ultrasound: Corticomedullary differentiation maintained. Left renal simple cyst. CT angiogram to neck:: Negative Assessment and plan: -Acute acute distal right arm weakness and right leg weakness. Likely secondary to C5-C6, C6-C7. Also severe stenosis L4-L5 with disc bulge. And severe involvement of neural foramina stenosis: Slow to respond Stroke workup negative Cervical lumbar spine MRI and neuro consult done. IV Decadron 4 mg every 6 -Acute kidney injury likely prerenal from diuretic.: Corrected Renal ultrasound shows preserved corticomedullary different sensation. 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 Prater. IV steroids. -Hypothyroid Synthroid 100 g a day -Chronic bilateral lower extremity venous insufficiency VON stockings -Hyperlipidemia Lipitor 40 mg daily at bedtime -Primary osteoarthritis especially of the shoulder. Voltaren gel. -Essential hypertension Lopressor 25 mg twice a day chlorthalidone -Acute fluid overload from IV fluids.: Better Stop saline. Given Lasix Continue IV steroids. Patient will discuss with Dr. Prater today. Past Medical History Past Medical History: Deep Vein Thrombosis (DVT), Hypertension, Rheumatoid Arthritis (RA), Thyroid Disorder Additional Past Medical History / Comment(s): hx migrainres, History of Any Multi-Drug Resistant Organisms: None Reported Past Surgical History: Hysterectomy, Tonsillectomy Additional Past Surgical History / Comment(s): vein surgery left leg, dave cataracts Past Anesthesia/Blood Transfusion Reactions: Motion Sickness Past Psychological History: No Psychological Hx Reported Smoking Status: Never smoker Past Alcohol Use History: None Reported Past Drug Use History: None Reported - Past Family History Daughter(s) Family Medical History: Cancer
[2022-12-01] MEDS: ATORVASTATIN 40 MG TAB PO SCH (21:06)
[2022-12-02] MEDS: DEXAMETHASONE SOD PHOSPHATE 4 MG/ML 1 ML VIAL IVP SCH ×4 (02:47→20:05)
[2022-12-02] MEDS: CLOPIDOGREL 75 MG TAB PO SCH (08:07)
[2022-12-02] MEDS: CHLORTHALIDONE 25 MG TAB PO SCH (08:07)
[2022-12-02] MEDS: ASPIRIN 81 MG PO SCH (08:07)
[2022-12-02] MEDS: DICLOFENAC SODIUM GEL 100 GM TUBE TOPICAL SCH ×2 (08:08→20:08)
[2022-12-02] MEDS: ENOXAPARIN 40 MG/0.4 ML SYRINGE SQ SCH (08:09)
[2022-12-02 12:49] VITALS: BMI 29.3
--- NOTE | 2022-12-02 19:01 | P.PN ---
Progress Note - Text Progress Note Date: 12/02/22 Chief Complaint: Right-sided weakness This is a very pleasant 77-year-old patient of Dr. Shivani Morales. About 4 days ago patient started off with a head cold runny nose sore throat weak tired muscle aching. Did a home test came back positive for COVID. Started on Paxlovid. Patient went to bed last night doing fine. When she got up this morning she felt off balance. She had to hold onto things. This was around 8:30 this morning. By now she was feeling more and more heavy in the right leg. Also felt that she is unable to hold things with the right and could not write. Speech to to change she's had a slight headache for last 4 days. No change in vision. No trouble swallowing. Current decided to come in. Computed tomography scan of the ER was unremarkable. Consult at the bedside. No prior history of stroke. November 28: Patient presented with a clinical diagnosis stroke. Right-sided weakness remains. Discussed with the patient and son the results currently available. Patient's creatinine has normalized. Stop IV fluids. Has lower extremity edema. 1 dose of IV Lasix. November 29: Continues to have right leg weakness and right arm weakness. MRI of the brain did not show any stroke. Plavix was discontinued therefore. Patient has undergone cervical spine lumbar spine MRI today. Results pending. Patient still having trouble walking. MRI brain reviewed with the radiologist. No acute stroke noted. November 30: MRI spine and lumbar spine showing multiple levels of significant DJD and 80 of encroachment on the spinal cord. Given upper extremity also involved likely culprit is a cervical spine. IV steroids. Given the acute presentation we'll see while steroids help. Follow with Dr. Prater. No improvement of the leg slight improvement of the right hand. She is able to write a bit today. December 01: Patient started on IV Decadron yesterday. Very slight improvement in the right leg. Able to write with the right hand. Discussed with the patient. We'll see how the patient does over the weekend. Obviously less incl ined for any surgery. She'll discuss with Dr. Prater. December 02: Remains on IV Decadron. Right hand handwriting is becoming better. Not back to normal. Right leg weakness is better but feels numb from knee down to the foot. Able to stand but poor walking balance. No pain in the back. Active Medications Acetaminophen (Acetaminophen Tab 325 Mg Tab) 650 mg PO Q6HR PRN PRN Reason: Mild Pain or Fever > 100.5 Acetaminophen/Codeine Phosphate (Acetaminophen-Codeine 300-30mg Tab) 1 each PO Q6HR PRN PRN Reason: Pain Alprazolam (Alprazolam 0.25 Mg Tab) 0.25 mg PO Q6HR PRN PRN Reason: Anxiety Aspirin (Aspirin 81 Mg) 81 mg PO DAILY [facility] Last Admin: 12/02/22 08:07 Dose: Not Given Atorvastatin Calcium (Atorvastatin 40 Mg Tab) 40 mg PO HS [facility] Last Admin: 12/01/22 21:06 Dose: Not Given Calcium Carbonate/Glycine (Calcium Carbonate 500 Mg Chewable) 1,000 mg PO Q4HR PRN PRN Reason: Dyspepsia Chlorthalidone (Chlorthalidone 25 Mg Tab) 25 mg PO DAILY [facility] Last Admin: 12/02/22 08:07 Dose: 25 mg Clopidogrel Bisulfate (Clopidogrel 75 Mg Tab) 75 mg PO DAILY [facility] Last Admin: 12/02/22 08:07 Dose: Not Given Dexamethasone Sodium Phosphate (Dexamethasone Sod Phosphate 4 Mg/Ml 1 Ml Vial) 4 mg IVP Q6H [facility] Last Admin: 12/02/22 13:54 Dose: 4 mg Diclofenac Sodium (Diclofenac Sodium Gel 100 Gm Tube) 2 gm TOPICAL BID [facility]; Protocol Last Admin: 12/02/22 08:08 Dose: 2 gm Enoxaparin Sodium (Enoxaparin 40 Mg/0.4 Ml Syringe) 40 mg SQ DAILY [facility] Last Admin: 12/02/22 08:09 Dose: 40 mg Lactulose (Lactulose 20 Gm/30 Ml Cup) 20 gm PO DAILY PRN PRN Reason: Constipation Melatonin (Melatonin 3 Mg Tablet) 3 mg PO HS PRN PRN Reason: Insomnia Naloxone HCl (Naloxone 0.4 Mg/Ml 1 Ml Vial) 0.2 mg IV Q2M PRN PRN Reason: Opioid Reversal Ondansetron HCl (Ondansetron 4 Mg/2 Ml Vial) 4 mg IVP Q8HR PRN PRN Reason: Nausea And Vomiting Past medical history to include: Hypertension, rheumatoid arthritis, hypothyroid, migraine Social history: . No smoking. Alcohol occasionally. Used to work in the [employer] Physical examination: VITAL SIGNS: 97.6, 60, 16, 107/70, 98% room air GENERAL: up in chair EYES: Pupils equal. Conjunctiva normal. HEENT: External appearance of nose and ears normal, oral cavity grossly normal. NECK: JVD not raised; masses not palpable. HEART: First and second heart sounds are normal; some edema present LUNGS: Respiratory rate normal; clear to auscultation. ABDOMEN: Soft, nontender, liver spleen not palpable, no masses palpable. PSYCH: Alert and oriented x3; mood and affect normal. MUSCULOSKELETAL:No Clubbing/cyanosis;muscles-grossly intact. OA NEUROLOGICAL: [Cranial nerves grossly intact; no facial asymmetry, power or in the right arm better. Handwriting better. Right leg weakness 4/5. Numbness knee to the foot. INVESTIGATIONS, reviewed in the clinical context: December 01: Potassium 4.3 creatinine 0.99. TSH 2.6 Cervical lumbar spine MRI: C5-C6, C6-C7, moderate to severe stenosis, cervical spinal cord increased signal level of C5-C6. Also active inflammation at the level of C6 T1. Also findings at L4-L5 severe spinal canal stenosis. Secondary to disc bulge. 2-D echocardiogram: EF 55-60%. Negative bubble study. MRI brain with and without contrast: Chronic changes. November 28: Potassium 3.9 creatinine 0.98 White count 8.5 hemoglobin 13.3 platelets 585 sodium 136 potassium 3.8 BUN 35 creatinine 1.40 EKG tracing personally reviewed by me-poor R-wave progression in anterior leads. Nonspecific T ST segment changes. Chest x-ray film personally reviewed by me-unremarkable Carotid Doppler: Less than 50% stenosis bilateral carotid bifurcation. Renal ultrasound: Corticomedullary differentiation maintained. Left renal simple cyst. CT angiogram to neck:: Negative Assessment and plan: -Acute acute distal right arm weakness and right leg weakness. Likely secondary to C5-C6, C6-C7. Also severe stenosis L4-L5 with disc bulge. And severe involvement of neural foramina stenosis: Slow improvement. Stroke workup negative IV Decadron 4 mg every 6 -Acute kidney injury likely prerenal from diuretic.: Corrected Renal ultrasound shows preserved corticomedullary different sensation. 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 Prater. IV steroids. -Hypothyroid Synthroid 100 g a day -Chronic bilateral lower extremity venous insufficiency VON stockings -Hyperlipidemia Lipitor 40 mg daily at bedtime -Primary osteoarthritis especially of the shoulder. Voltaren gel. -Essential hypertension Lopressor 25 mg twice a day chlorthalidone -Acute fluid overload from IV fluids.: Better Stop saline. Given Lasix Continue IV Decadron. Gradual improvement. Patient will discuss with Dr. Prater. Past Medical History Past Medical History: Deep Vein Thrombosis (DVT), Hypertension, Rheumatoid Arthritis (RA), Thyroid Disorder Additional Past Medical History / Comment(s): hx migrainres, History of Any Multi-Drug Resistant Organisms: None Reported Past Surgical History: Hysterectomy, Tonsillectomy Additional Past Surgical History / Comment(s): vein surgery left leg, dave cataracts Past Anesthesia/Blood Transfusion Reactions: Motion Sickness Past Psychological History: No Psychological Hx Reported Smoking Status: Never smoker Past Alcohol Use History: None Reported Past Drug Use History: None Reported - Past Family History Daughter(s) Family Medical History: Cancer
[2022-12-02] MEDS: ATORVASTATIN 40 MG TAB PO SCH (20:08)
[2022-12-03] MEDS: DEXAMETHASONE SOD PHOSPHATE 4 MG/ML 1 ML VIAL IVP SCH ×4 (02:03→20:15)
[2022-12-03] MEDS: ASPIRIN 81 MG PO SCH (06:46)
[2022-12-03] MEDS: CLOPIDOGREL 75 MG TAB PO SCH (06:46)
[2022-12-03] MEDS: DICLOFENAC SODIUM GEL 100 GM TUBE TOPICAL SCH ×2 (07:30→20:18)
[2022-12-03] MEDS: ENOXAPARIN 40 MG/0.4 ML SYRINGE SQ SCH (07:30)
[2022-12-03] MEDS: CHLORTHALIDONE 25 MG TAB PO SCH (07:30)
--- NOTE | 2022-12-03 19:22 | P.PN ---
Progress Note - Text Progress Note Date: 12/03/22 Chief Complaint: Right-sided weakness This is a very pleasant 77-year-old patient of Dr. Shivani Morales. About 4 days ago patient started off with a head cold runny nose sore throat weak tired muscle aching. Did a home test came back positive for COVID. Started on Paxlovid. Patient went to bed last night doing fine. When she got up this morning she felt off balance. She had to hold onto things. This was around 8:30 this morning. By now she was feeling more and more heavy in the right leg. Also felt that she is unable to hold things with the right and could not write. Speech to to change she's had a slight headache for last 4 days. No change in vision. No trouble swallowing. Current decided to come in. Computed tomography scan of the ER was unremarkable. Consult at the bedside. No prior history of stroke. November 28: Patient presented with a clinical diagnosis stroke. Right-sided weakness remains. Discussed with the patient and son the results currently available. Patient's creatinine has normalized. Stop IV fluids. Has lower extremity edema. 1 dose of IV Lasix. November 29: Continues to have right leg weakness and right arm weakness. MRI of the brain did not show any stroke. Plavix was discontinued therefore. Patient has undergone cervical spine lumbar spine MRI today. Results pending. Patient still having trouble walking. MRI brain reviewed with the radiologist. No acute stroke noted. November 30: MRI spine and lumbar spine showing multiple levels of significant DJD and 80 of encroachment on the spinal cord. Given upper extremity also involved likely culprit is a cervical spine. IV steroids. Given the acute presentation we'll see while steroids help. Follow with Dr. Prater. No improvement of the leg slight improvement of the right hand. She is able to write a bit today. December 01: Patient started on IV Decadron yesterday. Very slight improvement in the right leg. Able to write with the right hand. Discussed with the patient. We'll see how the patient does over the weekend. Obviously less incl ined for any surgery. She'll discuss with Dr. Prater. December 02: Remains on IV Decadron. Right hand handwriting is becoming better. Not back to normal. Right leg weakness is better but feels numb from knee down to the foot. Able to stand but poor walking balance. No pain in the back. December 03: Continues and IV Decadron. Tried are reported. After normal. Patient is only able to stand. Not able to walk. Numbness persists from knee downwards. No pain. Cutback Decadron to 4 mg every 8. Patient awaiting to see Dr. Prater. Active Medications Acetaminophen (Acetaminophen Tab 325 Mg Tab) 650 mg PO Q6HR PRN PRN Reason: Mild Pain or Fever > 100.5 Acetaminophen/Codeine Phosphate (Acetaminophen-Codeine 300-30mg Tab) 1 each PO Q6HR PRN PRN Reason: Pain Alprazolam (Alprazolam 0.25 Mg Tab) 0.25 mg PO Q6HR PRN PRN Reason: Anxiety Aspirin (Aspirin 81 Mg) 81 mg PO DAILY [facility] Last Admin: 12/03/22 06:46 Dose: Not Given Atorvastatin Calcium (Atorvastatin 40 Mg Tab) 40 mg PO HS [facility] Last Admin: 12/02/22 20:08 Dose: Not Given Calcium Carbonate/Glycine (Calcium Carbonate 500 Mg Chewable) 1,000 mg PO Q4HR PRN PRN Reason: Dyspepsia Chlorthalidone (Chlorthalidone 25 Mg Tab) 25 mg PO DAILY [facility] Last Admin: 12/03/22 07:30 Dose: 25 mg Clopidogrel Bisulfate (Clopidogrel 75 Mg Tab) 75 mg PO DAILY [facility] Last Admin: 12/03/22 06:46 Dose: Not Given Dexamethasone Sodium Phosphate (Dexamethasone Sod Phosphate 4 Mg/Ml 1 Ml Vial) 4 mg IVP Q8H [facility] Diclofenac Sodium (Diclofenac Sodium Gel 100 Gm Tube) 2 gm TOPICAL BID [facility]; Protocol Last Admin: 12/03/22 07:30 Dose: 2 gm Enoxaparin Sodium (Enoxaparin 40 Mg/0.4 Ml Syringe) 40 mg SQ DAILY [facility] Last Admin: 12/03/22 07:30 Dose: 40 mg Lactulose (Lactulose 20 Gm/30 Ml Cup) 20 gm PO DAILY PRN PRN Reason: Constipation Melatonin (Melatonin 3 Mg Tablet) 3 mg PO HS PRN PRN Reason: Insomnia Naloxone HCl (Naloxone 0.4 Mg/Ml 1 Ml Vial) 0.2 mg IV Q2M PRN PRN Reason: Opioid Reversal Ondansetron HCl (Ondansetron 4 Mg/2 Ml Vial) 4 mg IVP Q8HR PRN PRN Reason: Nausea And Vomiting Past medical history to include: Hypertension, rheumatoid arthritis, hypothyroid, migraine Social history: . No smoking. Alcohol occasionally. Used to work in the bank Physical examination: VITAL SIGNS: 98.1, 55, 18, 128/72, 98% room air GENERAL: Sitting in chair EYES: Pupils equal. Conjunctiva normal. HEENT: External appearance of nose and ears normal, oral cavity grossly normal. NECK: JVD not raised; masses not palpable. HEART: First and second heart sounds are normal; some edema present LUNGS: Respiratory rate normal; clear to auscultation. ABDOMEN: Soft, nontender, liver spleen not palpable, no masses palpable. PSYCH: Alert and oriented x3; mood and affect normal. MUSCULOSKELETAL:No Clubbing/cyanosis;muscles-grossly intact. OA NEUROLOGICAL: [Cranial nerves grossly intact; no facial asymmetry, power or in the right arm better. Handwriting better. Right leg weakness 4/5. Numbness knee to the foot. INVESTIGATIONS, reviewed in the clinical context: December 01: Potassium 4.3 creatinine 0.99. TSH 2.6 Cervical lumbar spine MRI: C5-C6, C6-C7, moderate to severe stenosis, cervical spinal cord increased signal level of C5-C6. Also active inflammation at the level of C6 T1. Also findings at L4-L5 severe spinal canal stenosis. Secondary to disc bulge. 2-D echocardiogram: EF 55-60%. Negative bubble study. MRI brain with and without contrast: Chronic changes. November 28: Potassium 3.9 creatinine 0.98 White count 8.5 hemoglobin 13.3 platelets 585 sodium 136 potassium 3.8 BUN 35 creatinine 1.40 EKG tracing personally reviewed by me-poor R-wave progression in anterior leads. Nonspecific T ST segment changes. Chest x-ray film personally reviewed by me-unremarkable Carotid Doppler: Less than 50% stenosis bilateral carotid bifurcation. Renal ultrasound: Corticomedullary differentiation maintained. Left renal simple cyst. CT angiogram to neck:: Negative Assessment and plan: -Acute acute distal right arm weakness and right leg weakness. Likely secondary to C5-C6, C6-C7. Also severe stenosis L4-L5 with disc bulge. And severe involvement of neural foramina stenosis: Slow improvement. Stroke workup negative Cutback IV Decadron 4 mg every 8 -Acute kidney injury likely prerenal from diuretic.: Corrected Renal ultrasound shows preserved corticomedullary different sensation. 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 Prater. IV steroids. -Hypothyroid Synthroid 100 g a day -Chronic bilateral lower extremity venous insufficiency VON stockings -Hyperlipidemia Lipitor 40 mg daily at bedtime -Primary osteoarthritis especially of the shoulder. Voltaren gel. -Essential hypertension Lopressor 25 mg twice a day chlorthalidone -Acute fluid overload from IV fluids.: Better Stop saline. Given Lasix Decadron cutback to 4 mg every 8. Await further input from Dr. Prater. Discussed with patient. Past Medical History Past Medical History: Deep Vein Thrombosis (DVT), Hypertension, Rheumatoid Arthritis (RA), Thyroid Disorder Additional Past Medical History / Comment(s): hx migrainres, History of Any Multi-Drug Resistant Organisms: None Reported Past Surgical History: Hysterectomy, Tonsillectomy Additional Past Surgical History / Comment(s): vein surgery left leg, dave cataracts Past Anesthesia/Blood Transfusion Reactions: Motion Sickness Past Psychological History: No Psychological Hx Reported Smoking Status: Never smoker Past Alcohol Use History: None Reported Past Drug Use History: None Reported - Past Family History Daughter(s) Family Medical History: Cancer
[2022-12-03] MEDS: ATORVASTATIN 40 MG TAB PO SCH (20:19)
[2022-12-04] MEDS: DEXAMETHASONE SOD PHOSPHATE 4 MG/ML 1 ML VIAL IVP SCH ×2 (03:10→11:14)
[2022-12-04] MEDS: CLOPIDOGREL 75 MG TAB PO SCH (07:33)
[2022-12-04] MEDS: ASPIRIN 81 MG PO SCH (07:33)
[2022-12-04] MEDS: ENOXAPARIN 40 MG/0.4 ML SYRINGE SQ SCH (07:37)
[2022-12-04] MEDS: CHLORTHALIDONE 25 MG TAB PO SCH (07:37)
[2022-12-04] MEDS: DICLOFENAC SODIUM GEL 100 GM TUBE TOPICAL SCH ×2 (08:11→21:28)
--- NOTE | 2022-12-04 14:26 | P.PN ---
Progress Note - Text Progress Note Date: 12/04/22 Chief Complaint: Right-sided weakness This is a very pleasant 77-year-old patient of Dr. Shivani Morales. About 4 days ago patient started off with a head cold runny nose sore throat weak tired muscle aching. Did a home test came back positive for COVID. Started on Paxlovid. Patient went to bed last night doing fine. When she got up this morning she felt off balance. She had to hold onto things. This was around 8:30 this morning. By now she was feeling more and more heavy in the right leg. Also felt that she is unable to hold things with the right and could not write. Speech to to change she's had a slight headache for last 4 days. No change in vision. No trouble swallowing. Current decided to come in. Computed tomography scan of the ER was unremarkable. Consult at the bedside. No prior history of stroke. November 28: Patient presented with a clinical diagnosis stroke. Right-sided weakness remains. Discussed with the patient and son the results currently available. Patient's creatinine has normalized. Stop IV fluids. Has lower extremity edema. 1 dose of IV Lasix. November 29: Continues to have right leg weakness and right arm weakness. MRI of the brain did not show any stroke. Plavix was discontinued therefore. Patient has undergone cervical spine lumbar spine MRI today. Results pending. Patient still having trouble walking. MRI brain reviewed with the radiologist. No acute stroke noted. November 30: MRI spine and lumbar spine showing multiple levels of significant DJD and 80 of encroachment on the spinal cord. Given upper extremity also involved likely culprit is a cervical spine. IV steroids. Given the acute presentation we'll see while steroids help. Follow with Dr. Prater. No improvement of the leg slight improvement of the right hand. She is able to write a bit today. December 01: Patient started on IV Decadron yesterday. Very slight improvement in the right leg. Able to write with the right hand. Discussed with the patient. We'll see how the patient does over the weekend. Obviously less incl ined for any surgery. She'll discuss with Dr. Prater. December 02: Remains on IV Decadron. Right hand handwriting is becoming better. Not back to normal. Right leg weakness is better but feels numb from knee down to the foot. Able to stand but poor walking balance. No pain in the back. December 03: Continues and IV Decadron. Tried are reported. After normal. Patient is only able to stand. Not able to walk. Numbness persists from knee downwards. No pain. Cutback Decadron to 4 mg every 8. Patient awaiting to see Dr. Prater. December 04: No change in neurological status regarding the lower extremity. From yesterday. Patient seen by Dr. Prater this morning. Plan is for steroid injection tomorrow. Active Medications Acetaminophen (Acetaminophen Tab 325 Mg Tab) 650 mg PO Q6HR PRN PRN Reason: Mild Pain or Fever > 100.5 Acetaminophen/Codeine Phosphate (Acetaminophen-Codeine 300-30mg Tab) 1 each PO Q6HR PRN PRN Reason: Pain Alprazolam (Alprazolam 0.25 Mg Tab) 0.25 mg PO Q6HR PRN PRN Reason: Anxiety Aspirin (Aspirin 81 Mg) 81 mg PO DAILY [facility] Last Admin: 12/04/22 07:33 Dose: Not Given Atorvastatin Calcium (Atorvastatin 40 Mg Tab) 40 mg PO HS [facility] Last Admin: 12/03/22 20:19 Dose: Not Given Calcium Carbonate/Glycine (Calcium Carbonate 500 Mg Chewable) 1,000 mg PO Q4HR PRN PRN Reason: Dyspepsia Chlorthalidone (Chlorthalidone 25 Mg Tab) 25 mg PO DAILY [facility] Last Admin: 12/04/22 07:37 Dose: 25 mg Clopidogrel Bisulfate (Clopidogrel 75 Mg Tab) 75 mg PO DAILY [facility] Last Admin: 12/04/22 07:33 Dose: Not Given Dexamethasone Sodium Phosphate (Dexamethasone Sod Phosphate 4 Mg/Ml 1 Ml Vial) 4 mg IVP Q8H [facility] Last Admin: 12/04/22 11:14 Dose: 4 mg Diclofenac Sodium (Diclofenac Sodium Gel 100 Gm Tube) 2 gm TOPICAL BID [facility]; Protocol Last Admin: 12/04/22 08:11 Dose: 2 gm Enoxaparin Sodium (Enoxaparin 40 Mg/0.4 Ml Syringe) 40 mg SQ DAILY [facility] Last Admin: 12/04/22 07:37 Dose: 40 mg Lactulose (Lactulose 20 Gm/30 Ml Cup) 20 gm PO DAILY PRN PRN Reason: Constipation Melatonin (Melatonin 3 Mg Tablet) 3 mg PO HS PRN PRN Reason: Insomnia Naloxone HCl (Naloxone 0.4 Mg/Ml 1 Ml Vial) 0.2 mg IV Q2M PRN PRN Reason: Opioid Reversal Ondansetron HCl (Ondansetron 4 Mg/2 Ml Vial) 4 mg IVP Q8HR PRN PRN Reason: Nausea And Vomiting Past medical history to include: Hypertension, rheumatoid arthritis, hypothyroid, migraine Social history: . No smoking. Alcohol occasionally. Used to work in the bank Physical examination: VITAL SIGNS: 98.1, 63, 19, 110/72, 99% room air GENERAL: Sitting in chair EYES: Pupils equal. Conjunctiva normal. HEENT: External appearance of nose and ears normal, oral cavity grossly normal. NECK: JVD not raised; masses not palpable. HEART: First and second heart sounds are normal; some edema present LUNGS: Respiratory rate normal; clear to auscultation. ABDOMEN: Soft, nontender, liver spleen not palpable, no masses palpable. PSYCH: Alert and oriented x3; mood and affect normal. MUSCULOSKELETAL:No Clubbing/cyanosis;muscles-grossly intact. OA NEUROLOGICAL: [Cranial nerves grossly intact; no facial asymmetry, power or in the right arm better. Handwriting better. Right leg weakness 4/5. Numbness knee to the foot. INVESTIGATIONS, reviewed in the clinical context: December 01: Potassium 4.3 creatinine 0.99. TSH 2.6 Cervical lumbar spine MRI: C5-C6, C6-C7, moderate to severe stenosis, cervical spinal cord increased signal level of C5-C6. Also active inflammation at the level of C6 T1. Also findings at L4-L5 severe spinal canal stenosis. Secondary to disc bulge. 2-D echocardiogram: EF 55-60%. Negative bubble study. MRI brain with and without contrast: Chronic changes. November 28: Potassium 3.9 creatinine 0.98 White count 8.5 hemoglobin 13.3 platelets 585 sodium 136 potassium 3.8 BUN 35 creatinine 1.40 EKG tracing personally reviewed by me-poor R-wave progression in anterior leads. Nonspecific T ST segment changes. Chest x-ray film personally reviewed by me-unremarkable Carotid Doppler: Less than 50% stenosis bilateral carotid bifurcation. Renal ultrasound: Corticomedullary differentiation maintained. Left renal simple cyst. CT angiogram to neck:: Negative Assessment and plan: -Acute acute distal right arm weakness and right leg weakness. Likely secondary to C5-C6, C6-C7. Also severe stenosis L4-L5 with disc bulge. And severe involvement of neural foramina stenosis: Slow improvement. Stroke workup negative Change Decadron to 4 mg by mouth every 8. Per patient Dr. Prater decided to proceed with steroid injection. -Acute kidney injury likely prerenal from diuretic.: Corrected Renal ultrasound shows preserved corticomedullary different sensation. 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 Patient is able to stand. Being followed by Dr. Prater. IV steroids. -Hypothyroid Synthroid 100 g a day -Chronic bilateral lower extremity venous insufficiency VON stockings -Hyperlipidemia Lipitor 40 mg daily at bedtime -Primary osteoarthritis especially of the shoulder. Voltaren gel. -Essential hypertension Lopressor 25 mg twice a day chlorthalidone -Acute fluid overload from IV fluids.: Better Stop saline. Given Lasix Decadron changed to by mouth. For steroid injection per Dr. Prater. Discussed with patient Past Medical History Past Medical History: Deep Vein Thrombosis (DVT), Hypertension, Rheumatoid Arthritis (RA), Thyroid Disorder Additional Past Medical History / Comment(s): hx migrainres, History of Any Multi-Drug Resistant Organisms: None Reported Past Surgical History: Hysterectomy, Tonsillectomy Additional Past Surgical History / Comment(s): vein surgery left leg, dave cataracts Past Anesthesia/Blood Transfusion Reactions: Motion Sickness Past Psychological History: No Psychological Hx Reported Smoking Status: Never smoker Past Alcohol Use History: None Reported Past Drug Use History: None Reported - Past Family History Daughter(s) Family Medical History: Cancer
[2022-12-04] MEDS: dexAMETHasone 4 MG TAB PO SCH ×2 (15:17→21:27)
[2022-12-04] MEDS: ATORVASTATIN 40 MG TAB PO SCH (21:27)
[2022-12-05] MEDS ORDERED: LACTATED RINGERS 1,000 ML IV SCH (07:45)
[2022-12-05 08:07] LABS: Glucose,Whole Blood 106 mg/dL (70-110)
[2022-12-05] MEDS: DICLOFENAC SODIUM GEL 100 GM TUBE TOPICAL SCH (08:13)
[2022-12-05] MEDS: ENOXAPARIN 40 MG/0.4 ML SYRINGE SQ SCH (09:03)
[2022-12-05] MEDS: ASPIRIN 81 MG PO SCH (09:03)
[2022-12-05] MEDS: CLOPIDOGREL 75 MG TAB PO SCH (09:03)
[2022-12-05] MEDS: CHLORTHALIDONE 25 MG TAB PO SCH (09:40)
[2022-12-05] MEDS ORDERED: IOPAMIDOL M200 10 ML VIAL ONE (11:34)
[2022-12-05] MEDS ORDERED: methylPREDNISolone ACETATE 80 MG/ML 1 ML VIAL ONE (11:34)
--- NOTE | 2022-12-05 11:55 | P.PCN ---
Date of Procedure: 12/05/22 Description of Procedure: Procedure: 1. L4-L5 Epidural steroid injection under fluoroscopic guidance # 1 , 2. Lumbar epidurogram PREOPERATIVE DIAGNOSIS: Lumbar degenerative disc disease, lumbar spinal stenosis and Lumbar radiculopathy. POSTOPERATIVE DIAGNOSIS: Lumbar degenerative disc disease, lumbar spinal stenosis, and Lumbar radiculopathy. SURGEON: Vince Gleason ANESTHESIA: Local with 1% lidocaine, and IV sedation: None EBL: None. Specimen removed: None Fluoroscopic image: saved to electronic medical records PROCEDURE INDICATION: The patient had history of Lumbar degenerative disc disease and Lumbar radiculopathy. Failed to conservative therapy. Presented for epidural steroid injection. PROCEDURE DESCRIPTION: The patient was seen and identified in the preoperative area. Risks, benefits, complications, and alternatives were discussed with the patient. The patient agreed to proceed with the procedure and signed the consent. IV was started, and vital signs were stable. Patient was taken to the procedure area, and time out was completed. The patient was placed in the prone position on procedure table and a pillow was placed under the abdomen to reduce lumbar lordosis. The lumbosacral area was prepped and draped in the usual sterile fashion. Critical pause was taken. Vital signs were closely monitored during the procedure. Using anterior-posterior fluoroscopy, the L4-L5 interlaminar space was identified, and skin and deeper tissues were localized with 1% lidocaine. Using anterior-posterior fluoroscopy, lateral fluoroscopy, and [id number] technique, a 20 gauge 3.5 Tuohy epidural needle entered the epidural space. After negative aspiration of CSF and blood with no paresthesias, 1 ml of [id number] contrast dye was injected and an excellent epidurogram was seen. Again after negative aspiration of CSF and blood with no paresthesias, 8 mL of block solution was injected into the epidural space. Block solution contained 80 mg of Depo-Medrol, and 6 mL of preservative-free normal saline. Needle was withdrawn intact, skin was cleansed, and bandages were applied. COMPLICATIONS: None. DISPOSITION / PLANS: The patient was placed in a supine position and transferred to her inpatient room in a stable condition for observation.. Discharge instructions given to the patient & floor RN by the staff. The patient was reexamined prior to discharge. The patient will schedule a follow up in the clinic in 4 weeks. note : Stop oral steroids. Start Lovenox after 12 hours@ 12/06/2022, mid night
--- NOTE | 2022-12-05 12:00 | FL ---
EXAMINATION TYPE: FL guided pain mgmt statistic DATE OF EXAM: 12/05/2022 HISTORY: Fluoroscopy time Total dose area product (DAP) in uGy*m?, mGy*cm? (or similar): 0.51600 IMPRESSION: 1. Fluoroscopy time.
[2022-12-05] MEDS: dexAMETHasone 4 MG TAB PO SCH (13:33)
[2022-12-05 13:38] VITALS: BP 130/74; PULSE 80; RESP 19; TEMP 97.5
--- NOTE | 2022-12-05 22:35 | P.DS ---
Providers Date of admission: 11/27/22 18:07 Expected date of discharge: 12/05/22 Attending physician: Willian Kline Consults: 11/27/22 18:09 Consult Physician Urgent Consulting Provider: Lance Jalloh Consult Reason/Comments: right sided weakness/numbess, suspected cva Do you want consulting provider notified?: Yes 11/28/22 16:18 Consult Physician Stat Consulting Provider: Amos Prater Consult Reason/Comments: Ortho Do you want consulting provider notified?: Yes 11/30/22 13:35 Consult Physician Routine Consulting Provider: Nii Cota Consult Reason/Comments: Pain Management - RLE radiculopathy; Lumbar stenosis Do you want consulting provider notified?: Yes Primary care physician: Ashley Morales [facility] Course: Chief Complaint: Right-sided weakness This is a very pleasant 77-year-old patient of Dr. Shivani Morales. About 4 days ago patient started off with a head cold runny nose sore throat weak tired muscle aching. Did a home test came back positive for COVID. Started on Paxlovid. Patient went to bed last night doing fine. When she got up this morning she felt off balance. She had to hold onto things. This was around 8:30 this morning. By now she was feeling more and more heavy in the right leg. Also felt that she is unable to hold things with the right and could not write. Speech to to change she's had a slight headache for last 4 days. No change in vision. No trouble swallowing. Current decided to come in. Computed tomography scan of the ER was unremarkable. Consult at the bedside. No prior history of stroke. November 28: Patient presented with a clinical diagnosis stroke. Right-sided weakness remains. Discussed with the patient and son the results currently available. Patient's creatinine has normalized. Stop IV fluids. Has lower extremity edema. 1 dose of IV Lasix. November 29: Continues to have right leg weakness and right arm weakness. MRI of the brain did not show any stroke. Plavix was discontinued therefore. Patient has undergone cervical spine lumbar spine MRI today. Results pending. Patient still having trouble walking. MRI brain reviewed with the radiologist. No acute stroke noted. November 30: MRI spine and lumbar spine showing multiple levels of significant DJD and 80 of encroachment on the spinal cord. Given upper extremity also involved likely culprit is a cervical spine. IV steroids. Given the acute presentation we'll see while steroids help. Follow with Dr. Prater. No improvement of the leg slight improvement of the right hand. She is able to write a bit today. December 01: Patient started on IV Decadron yesterday. Very slight improvement in the right leg. Able to write with the right hand. Discussed with the patient. We'll see how the patient does over the weekend. Obviously less inclined for any surgery. She'll discuss with Dr. Prater. December 02: Remains on IV Decadron. Right hand handwriting is becoming better. Not back to normal. Right leg weakness is better but feels numb from knee down to the foot. Able to stand but poor walking balance. No pain in the back. December 03: Continues and IV Decadron. Tried are reported. After normal. Patient is only able to stand. Not able to walk. Numbness persists from knee downwards. No pain. Cutback Decadron to 4 mg every 8. Patient awaiting to see Dr. Prater. December 04: No change in neurological status regarding the lower extremity. From yesterday. Patient seen by Dr. Prater this morning. Plan is for steroid injection tomorrow. December 05: Patient's been walking well with a walker. Received a steroid injection in the lumbar spine today. We'll follow up with Dr. Prater. Discussed with Dr. Prater. Patient is not too keen for surgery. We'll see how she doesn't follow Dr. Prater. Going home. Home care and therapy. Discussion and discharge planning more than 35 minutes Past medical history to include: Hypertension, rheumatoid arthritis, hypothyroid, migraine Social history: . No smoking. Alcohol occasionally. Used to work in the [employer] Physical examination: VITAL SIGNS: 97.5, 80, 19, 1:30/74, 97% room air GENERAL: Sitting in chair EYES: Pupils equal. Conjunctiva normal. HEENT: External appearance of nose and ears normal, oral cavity grossly normal. NECK: JVD not raised; masses not palpable. HEART: First and second heart sounds are normal; some edema present LUNGS: Respiratory rate normal; clear to auscultation. ABDOMEN: Soft, nontender, liver spleen not palpable, no masses palpable. PSYCH: Alert and oriented x3; mood and affect normal. MUSCULOSKELETAL:No Clubbing/cyanosis;muscles-grossly intact. OA NEUROLOGICAL: [Cranial nerves grossly intact; no facial asymmetry, power or in the right arm better. Handwriting better. Right leg weakness 4/5. Numbness knee to the foot. Patient documented to walk about 650 feet with a walker. INVESTIGATIONS, reviewed in the clinical context: December 01: Potassium 4.3 creatinine 0.99. TSH 2.6 Cervical lumbar spine MRI: C5-C6, C6-C7, moderate to severe stenosis, cervical spinal cord increased signal level of C5-C6. Also active inflammation at the level of C6 T1. Also findings at L4-L5 severe spinal canal stenosis. Secondary to disc bulge. 2-D echocardiogram: EF 55-60%. Negative bubble study. MRI brain with and without contrast: Chronic changes. November 28: Potassium 3.9 creatinine 0.98 White count 8.5 hemoglobin 13.3 platelets 585 sodium 136 potassium 3.8 BUN 35 creatinine 1.40 EKG tracing personally reviewed by me-poor R-wave progression in anterior leads. Nonspecific T ST segment changes. Chest x-ray film personally reviewed by me-unremarkable Carotid Doppler: Less than 50% stenosis bilateral carotid bifurcation. Renal ultrasound: Corticomedullary differentiation maintained. Left renal simple cyst. CT angiogram to neck:: Negative Assessment and plan: -Acute acute distal right arm weakness and right leg weakness. Likely secondary to C5-C6, C6-C7. Also severe stenosis L4-L5 with disc bulge. And severe involvement of neural foramina stenosis: Improvement Stroke workup negative Stop Decadron. She'll follow with Dr. Prater outpatient. Received lumbar steroid injection today on December 05. -Acute kidney injury likely prerenal from diuretic.: Corrected Renal ultrasound shows preserved corticomedullary different sensation. Lasix discontinued -Gait dysfunction due to C5 C6 C7/lumbar spinal cord involvement, with numbness from the right knee down to the foot. Patient is able to stand. Being followed by Dr. Prater. Received Decadron. Steroid injection lumbar spine -Hypothyroid Synthroid 100 g a day -Chronic bilateral lower extremity venous insufficiency VON stockings -Hyperlipidemia Lipitor 40 mg daily at bedtime -Primary osteoarthritis especially of the shoulder. Voltaren l. -Essential hypertension Procardia XL chlorthalidone -Acute fluid overload from IV fluids.: Better Stop saline. Given Lasix Disposition: Home Past Medical History Past Medical History: Deep Vein Thrombosis (DVT), Hypertension, Rheumatoid Arthritis (RA), Thyroid Disorder Additional Past Medical History / Comment(s): hx migrainres, History of Any Multi-Drug Resistant Organisms: None Reported Past Surgical History: Hysterectomy, Tonsillectomy Additional Past Surgical History / Comment(s): vein surgery left leg, dave cataracts Past Anesthesia/Blood Transfusion Reactions: Motion Sickness Past Psychological History: No Psychological Hx Reported Smoking Status: Never smoker Past Alcohol Use History: None Reported Past Drug Use History: None Reported - Past Family History Daughter(s) Family Medical History: Cancer Plan - Discharge Summary Discharge Rx Participant: No New Discharge Prescriptions: New Chlorthalidone [Hygroton] 25 mg PO DAILY #30 tab Aspirin 81 mg PO DAILY tab Atorvastatin [Lipitor] 40 mg PO HS #30 tab Acetaminophen Tab [Tylenol] 650 mg PO Q6HR PRN tab PRN Reason: Mild Pain Or Fever > 100.5 Continue Levothyroxine Sodium [Synthroid] 100 mcg PO DAILY NIFEdipine XL [Procardia XL] 60 mg PO DAILY Diclofenac Sodium [Voltaren] 75 mg PO BID Discontinued Simvastatin [Zocor] 20 mg PO DIRECTED Furosemide [Lasix] 20 mg PO DAILY Nirmatrelvir/Ritonavir [Paxlovid 2X150 mg-100 mg (Eua)] 1 dose PO BID Discharge Medication List Levothyroxine Sodium [Synthroid] 100 mcg PO DAILY 05/27/21 [History] Diclofenac Sodium [Voltaren] 75 mg PO BID 11/27/22 [History] NIFEdipine XL [Procardia XL] 60 mg PO DAILY 11/27/22 [History] Acetaminophen Tab [Tylenol] 650 mg PO Q6HR PRN tab 12/05/22 [Rx] Aspirin 81 mg PO DAILY tab 12/05/22 [Rx] Atorvastatin [Lipitor] 40 mg PO HS #30 tab 12/05/22 [Rx] Chlorthalidone [Hygroton] 25 mg PO DAILY #30 tab 12/05/22 [Rx] Follow up Appointment(s)/Referral(s): [facility]idential [facility] [NON-STAFF] - Amos Prater DO [Doctor of Osteopathic Medicine] - 12/18/22 9:30 am (with Pooja) Ross,Ashley V, MD [Primary Care Provider] - 1-2 days (office closed at time of discharge. Please call to schedule appointment ) Patient Instructions/Handouts: Lumbar Spinal Stenosis (DC) Activity/Diet/Wound Care/Special Instructions: OP PT/OT Discharge/Stand Alone Forms: [facility] Instructions Discharge Disposition: HOME WITH HOME HEALTH SERVICES
--- NOTE | 2022-12-06 13:34 | CDI ---
Documentation Clarification Form Date: 12/06/2022 12:27:16 PM From: Monica Marrero Admit Date: 11/27/2022 06:07:00 PM Patient Name: Lorraine Mccurdy Visit Number: [id number] Discharge Date: 12/05/2022 04:15:00 PM ATTENTION: The Clinical Documentation Specialists (CDI) and [facility] Coding Staff appreciate your assistance in clarifying documentation. Please respond to the clarification below the line at the bottom and electronically sign. The CDI & [facility] Coding staff will review the response and follow-up if needed. Please note: Queries are made part of the Legal Health Record. If you have any questions, please contact the author of this message via ITS. Dr. Willian Kline Per H and P and copy and pasted notes throughout the chart Patient took a home Covid test on January 23 which The COVID-19 test obtained on date was reported as Positive. Patient was on Paxlovid. Patient admitted to the hospital 4 days later January 27, 2023 and work up for stroke (negattive). Severe L4-L5 stenosis with disc bulge was found and patient improved after Lumbar steroid injection. No treatment for Covid. Please clarify if Covid 19 is a valid diagnosis for this patient. History/risk factors: Postive Covid test 4 days prior to admission Clinical Indicators: No covid test administered while in the hospical Treatment: Treatment for Lumbar stenosis and disc bulge. Please clarify the COVID-19 status: [ ] Covid 19 is a valid diagnosis [ + ] COVID-19 is not a valid diagnosis [ ] Other, please specify MTDD
== END 2022-12-05 16:15 | disposition home health service (06) | DRG 552 ==
LOC: EC 15:14 → 3SCARD 18:07 → 4SSUR 11-29 16:32
PROVIDERS: ADMIT Hospitalist; ATTEND Hospitalist
PROC: 3E0S3BZ Introduction of Anesthetic Agent into Epidural Space, Percutaneous Approach (ICD-10-PCS; principal; 2022-12-05 11:30)
PROC: 3E0S33Z Introduction of Anti-inflammatory into Epidural Space, Percutaneous Approach (ICD-10-PCS; principal; 2022-12-05 11:30)
DX: M51.16 Intervertebral disc disorders with radiculopathy, lumbar region (principal); G81.91 Hemiplegia, unspecified affecting right dominant side; N17.9 Acute kidney failure, unspecified; E03.9 Hypothyroidism, unspecified; I10 Essential (primary) hypertension; G43.919 Migraine, unspecified, intractable, without status migrainosus; M06.9 Rheumatoid arthritis, unspecified; M10.9 Gout, unspecified; M48.04 Spinal stenosis, thoracic region; E78.5 Hyperlipidemia, unspecified; E87.70 Fluid overload, unspecified; F41.9 Anxiety disorder, unspecified; G43.909 Migraine, unspecified, not intractable, without status migrainosus; G47.00 Insomnia, unspecified; H70.91 Unspecified mastoiditis, right ear; J32.8 Other chronic sinusitis; J32.9 Chronic sinusitis, unspecified; K59.00 Constipation, unspecified; M19.91 Primary osteoarthritis, unspecified site; M43.12 Spondylolisthesis, cervical region; M47.819 Spondylosis without myelopathy or radiculopathy, site unspecified; M48.061 Spinal stenosis, lumbar region without neurogenic claudication; T50.2X5A Adverse effect of carbonic-anhydrase inhibitors, benzothiadiazides and other diuretics, initial encounter; I87.2 Venous insufficiency (chronic) (peripheral); Z91.81 History of falling; Z88.6 Allergy status to analgesic agent
CPT/HCPCS: 36415; 62323; 70450; 70496; 70498; 70553; 71046; 72156; 72158; 76770; 80048; 80053; 80061; 81003; 82550; 82607; 84443; 84484; 85025; 85610; 85730; 93005; 93306; 93880; 96361; 96372; 96374; 99285

== ENCOUNTER → 2023-01-01 | Outpatient (CLI) | payer MEDICARE ==
--- NOTE | 2023-01-01 13:02 | P.PN ---
Subjective Progress Note Date: 01/01/23 77 yr old inpatient female with a history of numbness and tingling sensation in the lower extremity, Lumbar spinal stenosis, DDD and facet arthropathy without myelopathy , patient complained of severe numbness and tingling sensation in the lower extremity , more prominent on the right side , patient was admitted to the [facility] November 2022, secondary to right lower extremity weakness and numbness, there was no surgical intervention done at that time, and we did lumbar epidural steroid injection at L4 5, patient reported that she had minimal benefit from it PMH: OA, DVT, HTN, RA, Hypothyroid Disorder, Migraine HAs PSH: Hysterectomy, Tonsillectomy, BL Cataract Removal, LLE Vein Surgery SH: Negative x3 FH: Daughter- [place] All: See list Meds: See list REVIEW OF ORGAN SYSTEMS: CONSTITUTIONAL: No fevers or chills. No recent weight loss. NEUROLOGICAL: + numbness and tingling along the distal extremities. No seizure disorders or headaches. MUSCULOSKELETAL: + pain PSYCHIATRIC: Denies current depression or suicidal thoughts. Physical Examinations : Physical Examinations : -Constitutiona : Cooperative , not in acute distress . -HEENT : nech : supple , no Lymphadenopathy , normal thyroid size . : eyes : no ptosis , no icterus, no photophobia . - neurologic : Cranial nerve II to XII intact , no focal neurological deffecit . -psychatric : alert , oriented X 3 , appropriate affect , intact judgment and insight . -Lymphatic : no Lymphadenopathy . - musculoskeltal : Lumber spine moter stegnth lower extremities ,thigh and legs 4/5 Right side , 5/5 Left side deep tendon reflexes : normal Knee Jerk , normal ankle Jerk lumber facet Loading Test =positive Right , positive Left Range of motion of the lumbar spine Flexion 30 degrees, extension 10 degrees strait leg raising test = negative bilaterally Fabere test= positive Right , and positive LT . no tenderness over the Sacroiliac joint on the Right , and Left sides MRI noncontrast of the lumbar spine = multilevel lumbar degenerative disc disease multilevel lumbar spinal stenosis and multilevel lumbar facet arthropathy Assessment/ Plan : Lumbar radiculopathy Lumbar spinal stenosis, lumbar DDD Lumbar spondylosis with lumbar facet arthropathy Patient had no benefit from lumbar epidural steroid injection at L4 5 She could benefit from lumbar epidural steroid injection at L3 4 Currently her main symptoms is numbness and tingling sensation in the lower extremity R> L Patient could benefit from Neurontin 100 mg twice a day dispense 60 with 1 refill, medication side effect discussed with the patient PQRS Narrative: Blood Pressure [Left Arm] 118/83 Blood Pressure 147/90 Pain Intensity [None] 0 Pain Intensity 0 Pain Scale Used Numeric (1 - 10) Scale Used Numeric (1 - 10) Home Medications: Ambulatory Orders Levothyroxine Sodium [Synthroid] 100 mcg PO DAILY 05/27/21 Simvastatin [Zocor] 20 mg PO DIRECTED 05/27/21 Diclofenac Sodium [Voltaren] 75 mg PO BID 11/27/22 Furosemide [Lasix] 20 mg PO DAILY 11/27/22 NIFEdipine XL [Procardia XL] 60 mg PO DAILY 11/27/22 Nirmatrelvir/Ritonavir [Paxlovid 2X150 mg-100 mg (Eua)] 1 dose PO BID 11/27/22 Controlled Substance Measures - Controlled Substance Measures Is patient prescribed a controlled substance at discharge?: No Objective - Vital Signs Vital signs: Intake & Output 12/31/22 01/01/23 01/01/23 18:59 06:59 18:59 Weight 76.204 kg
[2023-01-01 13:14] VITALS: BP 114/7; PULSE 70; RESP 16; TEMP 98.2
== END ==
LOC: PNWHC3 12:28
PROVIDERS: ATTEND Specialist
DX: M51.16 Intervertebral disc disorders with radiculopathy, lumbar region (principal); M47.26 Other spondylosis with radiculopathy, lumbar region; M48.061 Spinal stenosis, lumbar region without neurogenic claudication; E03.9 Hypothyroidism, unspecified; M06.9 Rheumatoid arthritis, unspecified; G43.909 Migraine, unspecified, not intractable, without status migrainosus; I10 Essential (primary) hypertension; Z86.718 Personal history of other venous thrombosis and embolism; Z79.890 Hormone replacement therapy; Z88.1 Allergy status to other antibiotic agents; Z79.82 Long term (current) use of aspirin; Z79.899 Other long term (current) drug therapy
CPT/HCPCS: 99211